=== PATIENT | female | born 1935 | race Caucasian/White ===

== ENCOUNTER 2021-04-12 08:18 | Inpatient (IN) | payer MEDICARE, OTHER ==
[2021-04-12] MEDS ORDERED: Sodium Chloride 0.9% 10 ML Syringe FLUSH PRN (08:38)
[2021-04-12] MEDS ORDERED: Sodium Chloride 0.9% 1,000 ML IV ONE ×2 (08:41→10:00)
--- NOTE | 2021-04-12 08:44 | EDM.PDOC ---
ED HPI GENERAL MEDICAL PROBLEM - General Stated Complaint: FALL Time Seen by Provider: 04/12/21 08:25 Source of Information: Reports: EMS, Family History Limitations: Reports: Altered Mental Status - History of Present Illness INITIAL COMMENTS - FREE TEXT/NARRATIVE: 85-year-old female who presents to the emergency department via BLS ambulance from [facility] in [place] secondary to decreased level of responsiveness. Apparently about a week ago the patient fell and did not appear to have any injuries. She has Alzheimer's dementia and is not usually very verbal but is able to get around with her walker and able to eat and drink. Apparently today she fell and the walker was on top of her and since then she has had decreased level of responsiveness. This information comes from the EMS personnel who brought the patient and also from talking to Barbara, the patient's daughter. They do tell me that the patient is a DNR/DNI and the family does not want any aggressive therapies. This is really all the history that I can obtain at this point. The patient is unresponsive to any stimuli and has labored respirations and initially on 100% nonrebreather was in the low 80s. This did come up to the mid 90s and her pulses in the 110 range. Blood pressure is in the 130 range. The patient does look quite ill. There are no other associated signs or symptoms no known. There are no other modifying factors known. Onset: Today Duration: Constant Location: Reports: Other (Not applicable) Quality: Reports: Other (Cannot obtain) Context: Reports: Other (As above) Associated Symptoms: Reports: No Other Symptoms (None known) Treatments ACCESS MANAGER: Reports: Other (see below) (Nothing.) Hip Pain Score (Numeric/FACES): 4 - Related Data Allergies Allergy/AdvReac Type Severity Reaction Status Date / Time Raisins Allergy Diarrhea Uncoded 04/12/21 15:45 Tomatoes Allergy Diarrhea Uncoded 04/12/21 15:44 Home Meds: Home Meds Calcium Carbonate/Vitamin D3 [Calcium 500-Vit D3 600 Caplet] 1 tab PO DAILY 04/12/21 [History] Cholecalciferol (Vitamin D3) [Vitamin D3] 5,000 unit PO DAILY 04/12/21 [History] Citalopram [Citalopram HBr] 10 mg PO DAILY 04/12/21 [History] Donepezil HCl 10 mg PO ASDIRECTED 04/12/21 [History] L.acidoph,Paracasei, B.lactis [Probiotic] 04/12/21 [History] Zinc 04/12/21 [History] Past Medical History Psychiatric History: Reports: Alzheimers Disease, Anxiety, Depression Social & Family History - Family History Family Medical History: Unobtainable - Tobacco Use Tobacco Use Status *Q: Unknown Ever Used Tobacco - Living Situation & Occupation Living situation: Reports: Assisted Living (Lives at [facility]) Occupation: Retired ED ROS GENERAL - Review of Systems Review Of Systems: Unable To Obtain Reason Not Obtained: Patient is comatose and cannot provide ED EXAM, GENERAL - Physical Exam Exam: See Below Exam Limited By: No Limitations General Appearance: Obtunded, Moderate Distress, Other (Appears near moribund) Eye Exam: Bilateral Eye: Other (Eyes close. No eye movement.) Ears: Normal External Exam Ear Exam: Bilateral Ear: Auricle Normal Nose: Normal Inspection, No Blood Throat/Mouth: Other (Dry mucous membranes) Neck: Normal Inspection Respiratory/Chest: Respiratory Distress Cardiovascular: Tachycardia, Other (Her extremities are cool peripherally) GI/Abdominal: Soft, Non-Tender Extremities: No Pedal Edema, Slow Capillary Refill Neurological: Unresponsive, Other (No response even to noxious stimuli.) Skin Exam: Cool, Pallor #1 Interpretation EKG Date: 04/12/21 Time: 09:27 Rhythm: NSR Rate (Beats/Min): 90 [place]: Normal P-Wave: Present QRS: Normal ST-T: Other (Possible subacute anteroseptal WA) QT: Normal Comparison: NA - No Prior EKG Course - Vital Signs Last Recorded V/S: Last Vital Signs Temp 36.0 C L 04/12/21 12:23 Pulse 88 04/12/21 12:23 Resp 21 H 04/12/21 12:23 BP 119/51 L 04/12/21 12:23 Pulse Ox 100 04/12/21 12:23 - Orders/Labs/Meds Orders: Active Orders 24 hr Category Date Time Status Insert Urinary Catheter [OM.PC] ONETIME Care 04/12/21 09:00 Ordered Chest 1V Frontal [CR] Stat Exams 04/12/21 08:38 Taken Head wo Cont [CT] Stat Exams 04/12/21 08:44 Taken CULTURE URINE [RM] Stat Lab 04/12/21 08:59 Received Sodium Chloride 0.9% [Saline Flush] Med 04/12/21 08:38 Active 10 ml FLUSH ASDIRECTED PRN Peripheral IV Insertion Adult [OM.PC] Routine Oth 04/12/21 08:38 Ordered EKG 12 Lead [EK] Routine Ther 04/12/21 08:38 Ordered Medication Orders Sodium Chloride (Normal Saline) 1,000 mls @ 150 mls/hr IV ASDIRECTED HIRO Last Admin: 04/12/21 12:50 Dose: 150 mls/hr Documented by: SAMY Sodium Chloride (Sodium Chloride 0.9% 10 Ml Syringe) 10 ml FLUSH ASDIRECTED PRN PRN Reason: Keep Vein Open Labs: Laboratory Tests 04/12/21 04/12/21 04/12/21 Range/Units 08:55 08:55 08:55 WBC 12.8 H (3.0-10.3) x10-3/uL RBC 4.68 (3.60-5.20) x10(6)uL Hgb 13.3 (11.4-15.5) g/dL Hct 41.2 (34.2-48.2) % MCV 87.9 (76.7-100.5) fL MCH 28.5 (23.9-33.9) pg MCHC 32.4 (31.9-34.8) g/dL RDW 14.4 (12.3-16.5) % Plt Count 300 (151-488) x10(3)uL MPV 6.9 L (7.1-12.4) fL Neut % (Auto) 59.8 (30.8-76.2) % Lymph % (Auto) 33.4 (18.4-52.1) % [place] % (Auto) 4.9 (4.4-15.7) % Eos % (Auto) 1.5 (0.6-8.1) % Baso % (Auto) 0.4 (0.2-1.5) % Neut # (Auto) 7.7 H (1.5-6.3) x10-3/uL Lymph # (Auto) 4.3 (1.0-4.4) x10-3/uL [place] # (Auto) 0.6 (0.3-1.0) x10-3/uL Eos # (Auto) 0.2 (0.0-0.8) x10-3/uL Baso # (Auto) 0.0 (0.0-0.1) x10-3/uL POC VBG pH (7.32-7.43) pH Units POC VBG pCO2 (41-51) mmHg POC VBG HCO3 (22-29) mmol/L VBG Base Excess (-2 - 3+) mmol/L O2 Delivery Device Oxygen Flow Rate LPM Sodium 145 (135-145) mmol/L Potassium 3.8 (3.5-5.3) mmol/L Chloride 107 (100-110) mmol/L Carbon Dioxide 25 (21-32) mmol/L BUN 26 H (7-18) mg/dL Creatinine 1.5 H (0.55-1.02) mg/dL Est Cr Clr Drug Dosing TNP Estimated GFR (MDRD) 33 L (>60) BUN/Creatinine Ratio 17.3 (9-20) Glucose 210 H (80-116) mg/dL Lactic Acid (0.4-2.0) mmol/L Calcium 9.0 (8.6-10.2) mg/dL Magnesium 2.6 H (1.8-2.5) mg/dL Total Bilirubin 0.5 (0.1-1.3) mg/dL AST 43 H (5-25) IU/L ALT 36 (12-36) U/L Alkaline Phosphatase 153 H (56-112) IU/L Troponin I 312.6 H* (4.0-60.3) pg/mL Total Protein 7.2 (6.0-8.0) g/dL Albumin 3.2 (3.2-4.6) g/dL Globulin 4.0 g/dL Albumin/Globulin Ratio 0.8 Urine Color (YELLOW) Urine Appearance (CLEAR) Urine pH (5.0-6.5) Ur Specific [place] (1.010-1.025) Urine Protein (NEGATIVE) mg/dL Urine Glucose (UA) (NORMAL) mg/dL Urine Ketones (NEGATIVE) mg/dL Urine Occult Blood (NEGATIVE) Urine Nitrite (NEGATIVE) Urine Bilirubin (NEGATIVE) Urine Urobilinogen (NEGATIVE) mg/dL Ur Leukocyte Esterase (NEGATIVE) U Hyaline Cast (Auto) (NS) Urine RBC (0-5) Urine WBC (0-5) Ur Squamous Epith Cells (NS,R,O) Urine Bacteria (NS) Urine Mucus (NS) 04/12/21 04/12/21 04/12/21 Range/Units 08:55 08:59 09:06 WBC (3.0-10.3) x10-3/uL RBC (3.60-5.20) x10(6)uL Hgb (11.4-15.5) g/dL Hct (34.2-48.2) % MCV (76.7-100.5) fL MCH (23.9-33.9) pg MCHC (31.9-34.8) g/dL RDW (12.3-16.5) % Plt Count (151-488) x10(3)uL MPV (7.1-12.4) fL Neut % (Auto) (30.8-76.2) % Lymph % (Auto) (18.4-52.1) % [place] % (Auto) (4.4-15.7) % Eos % (Auto) (0.6-8.1) % Baso % (Auto) (0.2-1.5) % Neut # (Auto) (1.5-6.3) x10-3/uL Lymph # (Auto) (1.0-4.4) x10-3/uL [place] # (Auto) (0.3-1.0) x10-3/uL Eos # (Auto) (0.0-0.8) x10-3/uL Baso # (Auto) (0.0-0.1) x10-3/uL POC VBG pH 7.33 (7.32-7.43) pH Units POC VBG pCO2 41 (41-51) mmHg POC VBG HCO3 22 (22-29) mmol/L VBG Base Excess -4 L (-2 - 3+) mmol/L O2 Delivery Device Non rebr mask Oxygen Flow Rate 15 LPM Sodium (135-145) mmol/L Potassium (3.5-5.3) mmol/L Chloride (100-110) mmol/L Carbon Dioxide (21-32) mmol/L BUN (7-18) mg/dL Creatinine (0.55-1.02) mg/dL Est Cr Clr Drug Dosing Estimated GFR (MDRD) (>60) BUN/Creatinine Ratio (9-20) Glucose (80-116) mg/dL Lactic Acid 3.8 H* (0.4-2.0) mmol/L Calcium (8.6-10.2) mg/dL Magnesium (1.8-2.5) mg/dL Total Bilirubin (0.1-1.3) mg/dL AST (5-25) IU/L ALT (12-36) U/L Alkaline Phosphatase (56-112) IU/L Troponin I (4.0-60.3) pg/mL Total Protein (6.0-8.0) g/dL Albumin (3.2-4.6) g/dL Globulin g/dL Albumin/Globulin Ratio Urine Color Yellow (YELLOW) Urine Appearance Slightly cloudy (CLEAR) Urine pH 5.0 (5.0-6.5) Ur Specific [place] 1.020 (1.010-1.025) Urine Protein 500 H (NEGATIVE) mg/dL Urine Glucose (UA) Normal (NORMAL) mg/dL Urine Ketones Negative (NEGATIVE) mg/dL Urine Occult Blood Moderate H (NEGATIVE) Urine Nitrite Negative (NEGATIVE) Urine Bilirubin Negative (NEGATIVE) Urine Urobilinogen Normal (NEGATIVE) mg/dL Ur Leukocyte Esterase Moderate H (NEGATIVE) U Hyaline Cast (Auto) Rare H (NS) Urine RBC 5-10 H (0-5) Urine WBC 10-20 H (0-5) Ur Squamous Epith Cells Occasional (NS,R,O) Urine Bacteria Moderate H (NS) Urine Mucus Rare H (NS) Meds: Medications Generic Name Dose Route Start Last Admin Trade Name Freq PRN Reason Stop Dose Admin Sodium Chloride 1,000 mls @ 150 mls/hr 04/12/21 12:45 04/12/21 12:50 Normal Saline IV 150 mls/hr ASDIRECTED HIRO Administration Sodium Chloride 10 ml 04/12/21 08:38 Sodium Chloride 0.9% 10 Ml Syringe FLUSH ASDIRECTED PRN Keep Vein Open Discontinued Medications Generic Name Dose Route Start Last Admin Trade Name Freq PRN Reason Stop Dose Admin Sodium Chloride 1,000 mls @ 999 mls/hr 04/12/21 08:41 04/12/21 08:45 Normal Saline IV 04/12/21 09:41 999 mls/hr .BOLUS ONE Administration Sodium Chloride 1,000 mls @ 999 mls/hr 04/12/21 10:00 Normal Saline IV 04/12/21 11:00 .BOLUS ONE - Radiology Interpretation Free Text/Narrative:: Portable chest x-ray shows no acute abnormality per my read. - Re-Assessments/Exams Free Text/Narrative Re-Assessment/Exam: 04/12/21 10:25: She remains unresponsive. She has blood pressure the ranges anywhere from 60-100 systolic. She is receiving another 1 L bolus of normal saline IV. She did have scant urine on catheter specimen per the nursing staff. Her O2 saturations are 100% on 100% nonrebreather. White blood flow count is 12.8. Hemoglobin is 13.3. Platelet count is normal. Sodium is 145. Potassium is 3.8. Bicarbonate is 25. BUN is 26 and creatinine is 1.5. Glucose 210. These are normal. Magnesium is 2.6. Lactic acid is 3.8. Troponin is 312.6 EKG shows ev idence of what I think is a subacute anteroseptal WA. The chest x-ray was negative. This all this with the patient's and her daughter. They had already told me that the patient is a DNR/DNI and now he has also conveyed that he would want the patient to be comfort cares only. They would want IV fluids and supple oxygen but no aggressive earpiece. In fact, I feel that it is possible this could represent a PE and the family would not want any further testing to check into this your any other issue. Therefore, the patient will be admitted for comfort cares as above. A rapid Covid test is pending. Departure - Departure Time of Disposition: 10:29 Disposition: Admitted As Inpatient 68 Condition: Poor Clinical Impression: Encephalopathy acute Myocardial infarction Qualifiers: Myocardial infarction type: other Qualified Code(s): I21.A9 - Other myocardial infarction type Respiratory failure with hypoxia Qualifiers: Chronicity: acute Qualified Code(s): J96.01 - Acute respiratory failure with hypoxia - Discharge Information Sepsis Event Note (ED) - Focused Exam Vital Signs: Vital Signs Temp Pulse Resp BP Pulse Ox 04/12/21 09:01 35.9 C L 97 22 H 87/48 L 97 04/12/21 08:27 137 H 65 L - My Orders Last 24 Hours: My Active Orders 04/12/21 08:38 Chest 1V Frontal [CR] Stat Sodium Chloride 0.9% [Saline Flush] 10 ml FLUSH ASDIRECTED PRN Peripheral IV Insertion Adult [OM.PC] Routine EKG 12 Lead [EK] Routine 04/12/21 08:44 Head wo Cont [CT] Stat 04/12/21 08:59 CULTURE URINE [RM] Stat 04/12/21 09:00 Insert Urinary Catheter [OM.PC] ONETIME - Assessment/Plan Last 24 Hours: My Active Orders 04/12/21 08:38 Chest 1V Frontal [CR] Stat Sodium Chloride 0.9% [Saline Flush] 10 ml FLUSH ASDIRECTED PRN Peripheral IV Insertion Adult [OM.PC] Routine EKG 12 Lead [EK] Routine 04/12/21 08:44 Head wo Cont [CT] Stat 04/12/21 08:59 CULTURE URINE [RM] Stat 04/12/21 09:00 Insert Urinary Catheter [OM.PC] ONETIME
[2021-04-12 09:10] LABS: BASE EXCESS VENOUS,POC -4 mmol/L (-2 - 3+); PCO2 VENOUS,POC 41 mmHg (41-51); PH VENOUS,POC 7.33 pH Units (7.32-7.43)
[2021-04-12] MEDS: Sodium Chloride 0.9% 1,000 ML IV SCH ×2 (12:50→18:22)
--- NOTE | 2021-04-12 15:46 | PCM.HP.2 ---
H&P History of Present Illness - General Date of Service: 04/12/21 Admit Problem/Dx: Admission Diagnosis/Problem Admission Diagnosis/Problem AL, Myocardial infarction Source of Information: Family, Old Records History Limitations: Reports: Altered Mental Status - History of Present Illness Initial Comments - Free Text/Narative: Irena was brought from [facility], after she fell and became unresponsive. The was in another room when he heard her fall. She was unresponsive to him and route to the hospital by EMS, and even at the ER was not responding to painful stimuli. Oxygenation was reportedly in the low 80s on room air. She did perk up after a while and was able to respond, and the family give history of a fall recently (about 10 days ago) of a similar nature. She's not able to give much history because of Alzheimer's Dementia.The family endorse that she has had decreased oral intake,has not been participating in activities at the home,sleeping all the time. Hip Pain Score (Numeric/FACES): 4 - Related Data Allergies/Adverse Reactions: Allergies Allergy/AdvReac Type Severity Reaction Status Date / Time Raisins Allergy Diarrhea Uncoded 04/12/21 15:45 Tomatoes Allergy Diarrhea Uncoded 04/12/21 15:44 Past Medical History Psychiatric History: Reports: Alzheimers Disease, Anxiety, Depression - Past Surgical History Female Surgical History: Reports: Hysterectomy Social & Family History - Family History Family Medical History: Unobtainable - Tobacco Use Tobacco Use Status *Q: Never Tobacco User - Caffeine Use Caffeine Use: Reports: None - Recreational Drug Use Recreational Drug Use: No - Living Situation & Occupation Living situation: Reports: Assisted Living (Lives at [facility]) Occupation: Retired H&P Review of Systems - Review of Systems: Review Of Systems: Comprehensive ROS is negative, except as noted in HPI. Exam - Exam Exam: See Below - Vital Signs Vital Signs: Last Vital Signs Temp 96.8 F L 04/12/21 12:23 Pulse 88 04/12/21 12:23 Resp 21 H 04/12/21 12:23 BP 119/51 L 04/12/21 12:23 Pulse Ox 100 04/12/21 12:23 Weight: 64.365 kg - Exam General: Alert, Oriented, 4 HEENT: PERRLA, Hearing Intact, Mucosa Moist & [place], Nares Patent, Normal Nasal Septum, Posterior Pharynx Clear, Conjunctiva Clear, EOMI, EACs Clear, TMs Clear Neck: Supple, Trachea Midline, 2 Lungs: Clear to Auscultation, Normal Respiratory Effort Cardiovascular: Regular Rate, Regular Rhythm GI/Abdominal Exam: Normal Bowel Sounds, Soft, Non-Tender, No Organomegaly, No Distention, No Abnormal Bruit, No Mass, Pelvis Stable (Female) Exam: Deferred Rectal (Female) Exam: Deferred Back Exam: Normal Inspection, Full Range of Motion, Paraspinal Tenderness Extremities: Normal Inspection, Normal Range of Motion, Non-Tender, No Pedal Edema, Normal Capillary Refill Skin: Warm, Dry, Intact Neurological: Cranial Nerves Intact, Reflexes Equal Bilateral Neuro Extensive - Mental Status: Alert, Disorientation to Person, Memory Loss- Remote Events Neuro Extensive - Motor, Sensory, Reflexes: CN II-XII Intact Psychiatric: Alert, Depressed - Patient Data Lab Results Last 24 hrs: Laboratory Results - last 24 hr 04/12/21 04/12/21 04/12/21 Range/Units 08:55 08:55 08:55 WBC 12.8 H (3.0-10.3) x10-3/uL RBC 4.68 (3.60-5.20) x10(6)uL Hgb 13.3 (11.4-15.5) g/dL Hct 41.2 (34.2-48.2) % MCV 87.9 (76.7-100.5) fL MCH 28.5 (23.9-33.9) pg MCHC 32.4 (31.9-34.8) g/dL RDW 14.4 (12.3-16.5) % Plt Count 300 (151-488) x10(3)uL MPV 6.9 L (7.1-12.4) fL Neut % (Auto) 59.8 (30.8-76.2) % Lymph % (Auto) 33.4 (18.4-52.1) % [place] % (Auto) 4.9 (4.4-15.7) % Eos % (Auto) 1.5 (0.6-8.1) % Baso % (Auto) 0.4 (0.2-1.5) % Neut # (Auto) 7.7 H (1.5-6.3) x10-3/uL Lymph # (Auto) 4.3 (1.0-4.4) x10-3/uL [place] # (Auto) 0.6 (0.3-1.0) x10-3/uL Eos # (Auto) 0.2 (0.0-0.8) x10-3/uL Baso # (Auto) 0.0 (0.0-0.1) x10-3/uL POC VBG pH (7.32-7.43) pH Units POC VBG pCO2 (41-51) mmHg POC VBG HCO3 (22-29) mmol/L VBG Base Excess (-2 - 3+) mmol/L O2 Delivery Device Oxygen Flow Rate LPM Sodium 145 (135-145) mmol/L Potassium 3.8 (3.5-5.3) mmol/L Chloride 107 (100-110) mmol/L Carbon Dioxide 25 (21-32) mmol/L BUN 26 H (7-18) mg/dL Creatinine 1.5 H (0.55-1.02) mg/dL Est Cr Clr Drug Dosing TNP Estimated GFR (MDRD) 33 L (>60) BUN/Creatinine Ratio 17.3 (9-20) Glucose 210 H (80-116) mg/dL Lactic Acid (0.4-2.0) mmol/L Calcium 9.0 (8.6-10.2) mg/dL Magnesium 2.6 H (1.8-2.5) mg/dL Total Bilirubin 0.5 (0.1-1.3) mg/dL AST 43 H (5-25) IU/L ALT 36 (12-36) U/L Alkaline Phosphatase 153 H (56-112) IU/L Troponin I 312.6 H* (4.0-60.3) pg/mL Total Protein 7.2 (6.0-8.0) g/dL Albumin 3.2 (3.2-4.6) g/dL Globulin 4.0 g/dL Albumin/Globulin Ratio 0.8 Urine Color (YELLOW) Urine Appearance (CLEAR) Urine pH (5.0-6.5) Ur Specific [place] (1.010-1.025) Urine Protein (NEGATIVE) mg/dL Urine Glucose (UA) (NORMAL) mg/dL Urine Ketones (NEGATIVE) mg/dL Urine Occult Blood (NEGATIVE) Urine Nitrite (NEGATIVE) Urine Bilirubin (NEGATIVE) Urine Urobilinogen (NEGATIVE) mg/dL Ur Leukocyte Esterase (NEGATIVE) U Hyaline Cast (Auto) (NS) Urine RBC (0-5) Urine WBC (0-5) Ur Squamous Epith Cells (NS,R,O) Urine Bacteria (NS) Urine Mucus (NS) SARS-CoV-2 RNA (VICTORINO) (NEGATIVE) 04/12/21 04/12/21 04/12/21 Range/Units 08:55 08:59 09:06 WBC (3.0-10.3) x10-3/uL RBC (3.60-5.20) x10(6)uL Hgb (11.4-15.5) g/dL Hct (34.2-48.2) % MCV (76.7-100.5) fL MCH (23.9-33.9) pg MCHC (31.9-34.8) g/dL RDW (12.3-16.5) % Plt Count (151-488) x10(3)uL MPV (7.1-12.4) fL Neut % (Auto) (30.8-76.2) % Lymph % (Auto) (18.4-52.1) % [place] % (Auto) (4.4-15.7) % Eos % (Auto) (0.6-8.1) % Baso % (Auto) (0.2-1.5) % Neut # (Auto) (1.5-6.3) x10-3/uL Lymph # (Auto) (1.0-4.4) x10-3/uL [place] # (Auto) (0.3-1.0) x10-3/uL Eos # (Auto) (0.0-0.8) x10-3/uL Baso # (Auto) (0.0-0.1) x10-3/uL POC VBG pH 7.33 (7.32-7.43) pH Units POC VBG pCO2 41 (41-51) mmHg POC VBG HCO3 22 (22-29) mmol/L VBG Base Excess -4 L (-2 - 3+) mmol/L O2 Delivery Device Non rebr mask Oxygen Flow Rate 15 LPM Sodium (135-145) mmol/L Potassium (3.5-5.3) mmol/L Chloride (100-110) mmol/L Carbon Dioxide (21-32) mmol/L BUN (7-18) mg/dL Creatinine (0.55-1.02) mg/dL Est Cr Clr Drug Dosing Estimated GFR (MDRD) (>60) BUN/Creatinine Ratio (9-20) Glucose (80-116) mg/dL Lactic Acid 3.8 H* (0.4-2.0) mmol/L Calcium (8.6-10.2) mg/dL Magnesium (1.8-2.5) mg/dL Total Bilirubin (0.1-1.3) mg/dL AST (5-25) IU/L ALT (12-36) U/L Alkaline Phosphatase (56-112) IU/L Troponin I (4.0-60.3) pg/mL Total Protein (6.0-8.0) g/dL Albumin (3.2-4.6) g/dL Globulin g/dL Albumin/Globulin Ratio Urine Color Yellow (YELLOW) Urine Appearance Slightly cloudy (CLEAR) Urine pH 5.0 (5.0-6.5) Ur Specific [place] 1.020 (1.010-1.025) Urine Protein 500 H (NEGATIVE) mg/dL Urine Glucose (UA) Normal (NORMAL) mg/dL Urine Ketones Negative (NEGATIVE) mg/dL Urine Occult Blood Moderate H (NEGATIVE) Urine Nitrite Negative (NEGATIVE) Urine Bilirubin Negative (NEGATIVE) Urine Urobilinogen Normal (NEGATIVE) mg/dL Ur Leukocyte Esterase Moderate H (NEGATIVE) U Hyaline Cast (Auto) Rare H (NS) Urine RBC 5-10 H (0-5) Urine WBC 10-20 H (0-5) Ur Squamous Epith Cells Occasional (NS,R,O) Urine Bacteria Moderate H (NS) Urine Mucus Rare H (NS) SARS-CoV-2 RNA (VICTORINO) (NEGATIVE) 04/12/21 Range/Units 10:30 WBC (3.0-10.3) x10-3/uL RBC (3.60-5.20) x10(6)uL Hgb (11.4-15.5) g/dL Hct (34.2-48.2) % MCV (76.7-100.5) fL MCH (23.9-33.9) pg MCHC (31.9-34.8) g/dL RDW (12.3-16.5) % Plt Count (151-488) x10(3)uL MPV (7.1-12.4) fL Neut % (Auto) (30.8-76.2) % Lymph % (Auto) (18.4-52.1) % [place] % (Auto) (4.4-15.7) % Eos % (Auto) (0.6-8.1) % Baso % (Auto) (0.2-1.5) % Neut # (Auto) (1.5-6.3) x10-3/uL Lymph # (Auto) (1.0-4.4) x10-3/uL [place] # (Auto) (0.3-1.0) x10-3/uL Eos # (Auto) (0.0-0.8) x10-3/uL Baso # (Auto) (0.0-0.1) x10-3/uL POC VBG pH (7.32-7.43) pH Units POC VBG pCO2 (41-51) mmHg POC VBG HCO3 (22-29) mmol/L VBG Base Excess (-2 - 3+) mmol/L O2 Delivery Device Oxygen Flow Rate LPM Sodium (135-145) mmol/L Potassium (3.5-5.3) mmol/L Chloride (100-110) mmol/L Carbon Dioxide (21-32) mmol/L BUN (7-18) mg/dL Creatinine (0.55-1.02) mg/dL Est Cr Clr Drug Dosing Estimated GFR (MDRD) (>60) BUN/Creatinine Ratio (9-20) Glucose (80-116) mg/dL Lactic Acid (0.4-2.0) mmol/L Calcium (8.6-10.2) mg/dL Magnesium (1.8-2.5) mg/dL Total Bilirubin (0.1-1.3) mg/dL AST (5-25) IU/L ALT (12-36) U/L Alkaline Phosphatase (56-112) IU/L Troponin I (4.0-60.3) pg/mL Total Protein (6.0-8.0) g/dL Albumin (3.2-4.6) g/dL Globulin g/dL Albumin/Globulin Ratio Urine Color (YELLOW) Urine Appearance (CLEAR) Urine pH (5.0-6.5) Ur Specific [place] (1.010-1.025) Urine Protein (NEGATIVE) mg/dL Urine Glucose (UA) (NORMAL) mg/dL Urine Ketones (NEGATIVE) mg/dL Urine Occult Blood (NEGATIVE) Urine Nitrite (NEGATIVE) Urine Bilirubin (NEGATIVE) Urine Urobilinogen (NEGATIVE) mg/dL Ur Leukocyte Esterase (NEGATIVE) U Hyaline Cast (Auto) (NS) Urine RBC (0-5) Urine WBC (0-5) Ur Squamous Epith Cells (NS,R,O) Urine Bacteria (NS) Urine Mucus (NS) SARS-CoV-2 RNA (VICTORINO) Negative (NEGATIVE) Result Diagrams: 04/12/21 08:55 04/12/21 08:55 Sepsis Event Note - Focused Exam Vital Signs: Vital Signs Temp Pulse Resp BP Pulse Ox 04/12/21 12:23 96.8 F L 88 21 H 119/51 L 100 04/12/21 09:01 96.7 F L 97 22 H 87/48 L 97 04/12/21 08:27 137 H 65 L - Problem List (1) Myocardial infarction SNOMED Code(s): 03560522 ICD Code: I21.9 - ACUTE MYOCARDIAL INFARCTION, UNSPECIFIED Status: Acute Current Visit: Yes Qualifiers: Myocardial infarction type: other Qualified Code(s): I21.A9 - Other myocardial infarction type; I21.A - Other type of myocardial infarction (2) YEYO (acute kidney injury) SNOMED Code(s): 49573551, 96055926 ICD Code: N17.9 - ACUTE KIDNEY FAILURE, UNSPECIFIED Status: Acute Current Visit: Yes (3) Repeated falls SNOMED Code(s): 122721557 ICD Code: R29.6 - REPEATED FALLS Status: Acute Current Visit: Yes (4) Alzheimer's dementia SNOMED Code(s): 08268340 ICD Code: G30.9 - ALZHEIMER'S DISEASE, UNSPECIFIED; F02.80 - DEMENTIA IN OTH DISEASES CLASSD ELSWHR W/O BEHAVRL DISTURB Status: Acute Current Visit: Yes Qualifiers: Alzheimer's disease onset: late-onset (5) Respiratory failure with hypoxia SNOMED Code(s): 45057384185785264 ICD Code: J96.91 - RESPIRATORY FAILURE, UNSPECIFIED WITH HYPOXIA Status: Acute Current Visit: Yes Qualifiers: Chronicity: acute Qualified Code(s): J96.01 - Acute respiratory failure with hypoxia Problem List Initiated/Reviewed/Updated: Yes Orders Last 24hrs: Active Orders 24 hr Category Date Time Status Admission Status [Patient Status] [ADT] Routine ADT 04/12/21 10:29 Active EKG Documentation Completion [RC] ASDIRECTED Care 04/12/21 08:40 Active Insert Urinary Catheter [OM.PC] ONETIME Care 04/12/21 09:00 Ordered Regular Diet [DIET] Diet 04/12/21 Dinner Ordered Chest 1V Frontal [CR] Stat Exams 04/12/21 08:38 Taken Head wo Cont [CT] Stat Exams 04/12/21 08:44 Taken CULTURE URINE [RM] Stat Lab 04/12/21 08:59 Received Sodium Chloride 0.9% [Normal Saline] 1,000 ml Med 04/12/21 12:45 Active IV ASDIRECTED Sodium Chloride 0.9% [Saline Flush] Med 04/12/21 08:38 Active 10 ml FLUSH ASDIRECTED PRN Peripheral IV Insertion Adult [OM.PC] Routine Oth 04/12/21 08:38 Ordered Resuscitation Status Stat Resus Stat 04/12/21 10:31 Ordered EKG 12 Lead [EK] Routine Ther 04/12/21 08:38 Ordered Medication Orders Sodium Chloride (Normal Saline) 1,000 mls @ 150 mls/hr IV ASDIRECTED HIRO Last Admin: 04/12/21 12:50 Dose: 150 mls/hr Documented by: SAMY Sodium Chloride (Sodium Chloride 0.9% 10 Ml Syringe) 10 ml FLUSH ASDIRECTED PRN PRN Reason: Keep Vein Open Assessment/Plan Comment:: Irena is now alert, although she does show memory disturbance consistent with her h/o AD. She's an unreliable historian. There is no chest pain or shortness of breath reported. The family does not want any heroic intervention, preferring comfort measures.I glenn give IV fluids, consult physical therapy, and OT. Possible discharge in 1-2 days. I did review the possibility of depression, and this would be discussed on an ambulatory basis by her PCP.
[2021-04-13] MEDS: Sodium Chloride 0.9% 1,000 ML IV SCH ×3 (01:06→21:34)
--- NOTE | 2021-04-13 09:18 | PCM.PN ---
- General Info Date of Service: 04/13/21 Subjective Update: Irena has no new symptoms. She denies chest pain or shortness of breath, however she is an unreliable historian due to dementia. - Review of Systems Cardiovascular: Reports: No Symptoms Gastrointestinal: Reports: No Symptoms Genitourinary: Reports: No Symptoms - Patient Data Vitals - Most Recent: Last Vital Signs Temp 96.5 F L 04/13/21 04:00 Pulse 70 04/13/21 04:00 Resp 18 04/13/21 04:00 BP 102/60 04/13/21 04:00 Pulse Ox 95 04/13/21 04:00 Weight - Most Recent: 64.365 kg I&O - Last 24 Hours: Intake & Output 04/12/21 04/13/21 04/13/21 22:59 06:59 14:59 Intake Total 1731 1098 Balance 1731 1098 Lab Results Last 24 Hours: Laboratory Results - last 24 hr 04/12/21 04/12/21 04/12/21 Range/Units 08:55 08:55 08:55 WBC (3.0-10.3) x10-3/uL RBC (3.60-5.20) x10(6)uL Hgb (11.4-15.5) g/dL Hct (34.2-48.2) % MCV (76.7-100.5) fL MCH (23.9-33.9) pg MCHC (31.9-34.8) g/dL RDW (12.3-16.5) % Plt Count (151-488) x10(3)uL MPV (7.1-12.4) fL Neut % (Auto) (30.8-76.2) % Lymph % (Auto) (18.4-52.1) % Carver % (Auto) (4.4-15.7) % Eos % (Auto) (0.6-8.1) % Baso % (Auto) (0.2-1.5) % Neut # (Auto) (1.5-6.3) x10-3/uL Lymph # (Auto) (1.0-4.4) x10-3/uL Carver # (Auto) (0.3-1.0) x10-3/uL Eos # (Auto) (0.0-0.8) x10-3/uL Baso # (Auto) (0.0-0.1) x10-3/uL Sodium 145 (135-145) mmol/L Potassium 3.8 (3.5-5.3) mmol/L Chloride 107 (100-110) mmol/L Carbon Dioxide 25 (21-32) mmol/L BUN 26 H (7-18) mg/dL Creatinine 1.5 H (0.55-1.02) mg/dL Est Cr Clr Drug Dosing TNP Estimated GFR (MDRD) 33 L (>60) BUN/Creatinine Ratio 17.3 (9-20) Glucose 210 H (80-116) mg/dL Lactic Acid 3.8 H* (0.4-2.0) mmol/L Calcium 9.0 (8.6-10.2) mg/dL Magnesium 2.6 H (1.8-2.5) mg/dL Total Bilirubin 0.5 (0.1-1.3) mg/dL AST 43 H (5-25) IU/L ALT 36 (12-36) U/L Alkaline Phosphatase 153 H (56-112) IU/L Troponin I 312.6 H* (4.0-60.3) pg/mL Total Protein 7.2 (6.0-8.0) g/dL Albumin 3.2 (3.2-4.6) g/dL Globulin 4.0 g/dL Albumin/Globulin Ratio 0.8 Urine Color (YELLOW) Urine Appearance (CLEAR) Urine pH (5.0-6.5) Ur Specific [place] (1.010-1.025) Urine Protein (NEGATIVE) mg/dL Urine Glucose (UA) (NORMAL) mg/dL Urine Ketones (NEGATIVE) mg/dL Urine Occult Blood (NEGATIVE) Urine Nitrite (NEGATIVE) Urine Bilirubin (NEGATIVE) Urine Urobilinogen (NEGATIVE) mg/dL Ur Leukocyte Esterase (NEGATIVE) U Hyaline Cast (Auto) (NS) Urine RBC (0-5) Urine WBC (0-5) Ur Squamous Epith Cells (NS,R,O) Urine Bacteria (NS) Urine Mucus (NS) SARS-CoV-2 RNA (VICTORINO) (NEGATIVE) 04/12/21 04/12/21 04/13/21 Range/Units 08:59 10:30 07:10 WBC 8.8 (3.0-10.3) x10-3/uL RBC 4.53 (3.60-5.20) x10(6)uL Hgb 12.8 (11.4-15.5) g/dL Hct 40.2 (34.2-48.2) % MCV 88.6 (76.7-100.5) fL MCH 28.3 (23.9-33.9) pg MCHC 31.9 (31.9-34.8) g/dL RDW 14.3 (12.3-16.5) % Plt Count 201 (151-488) x10(3)uL MPV 7.3 (7.1-12.4) fL Neut % (Auto) 80.4 H (30.8-76.2) % Lymph % (Auto) 11.2 L (18.4-52.1) % Carver % (Auto) 8.1 (4.4-15.7) % Eos % (Auto) 0.0 L (0.6-8.1) % Baso % (Auto) 0.3 (0.2-1.5) % Neut # (Auto) 7.0 H (1.5-6.3) x10-3/uL Lymph # (Auto) 1.0 (1.0-4.4) x10-3/uL Carver # (Auto) 0.7 (0.3-1.0) x10-3/uL Eos # (Auto) 0.0 (0.0-0.8) x10-3/uL Baso # (Auto) 0.0 (0.0-0.1) x10-3/uL Sodium (135-145) mmol/L Potassium (3.5-5.3) mmol/L Chloride (100-110) mmol/L Carbon Dioxide (21-32) mmol/L BUN (7-18) mg/dL Creatinine (0.55-1.02) mg/dL Est Cr Clr Drug Dosing Estimated GFR (MDRD) (>60) BUN/Creatinine Ratio (9-20) Glucose (80-116) mg/dL Lactic Acid (0.4-2.0) mmol/L Calcium (8.6-10.2) mg/dL Magnesium (1.8-2.5) mg/dL Total Bilirubin (0.1-1.3) mg/dL AST (5-25) IU/L ALT (12-36) U/L Alkaline Phosphatase (56-112) IU/L Troponin I (4.0-60.3) pg/mL Total Protein (6.0-8.0) g/dL Albumin (3.2-4.6) g/dL Globulin g/dL Albumin/Globulin Ratio Urine Color Yellow (YELLOW) Urine Appearance Slightly cloudy (CLEAR) Urine pH 5.0 (5.0-6.5) Ur Specific [place] 1.020 (1.010-1.025) Urine Protein 500 H (NEGATIVE) mg/dL Urine Glucose (UA) Normal (NORMAL) mg/dL Urine Ketones Negative (NEGATIVE) mg/dL Urine Occult Blood Moderate H (NEGATIVE) Urine Nitrite Negative (NEGATIVE) Urine Bilirubin Negative (NEGATIVE) Urine Urobilinogen Normal (NEGATIVE) mg/dL Ur Leukocyte Esterase Moderate H (NEGATIVE) U Hyaline Cast (Auto) Rare H (NS) Urine RBC 5-10 H (0-5) Urine WBC 10-20 H (0-5) Ur Squamous Epith Cells Occasional (NS,R,O) Urine Bacteria Moderate H (NS) Urine Mucus Rare H (NS) SARS-CoV-2 RNA (VICTORINO) Negative (NEGATIVE) 04/13/21 04/13/21 Range/Units 07:10 07:10 WBC (3.0-10.3) x10-3/uL RBC (3.60-5.20) x10(6)uL Hgb (11.4-15.5) g/dL Hct (34.2-48.2) % MCV (76.7-100.5) fL MCH (23.9-33.9) pg MCHC (31.9-34.8) g/dL RDW (12.3-16.5) % Plt Count (151-488) x10(3)uL MPV (7.1-12.4) fL Neut % (Auto) (30.8-76.2) % Lymph % (Auto) (18.4-52.1) % Carver % (Auto) (4.4-15.7) % Eos % (Auto) (0.6-8.1) % Baso % (Auto) (0.2-1.5) % Neut # (Auto) (1.5-6.3) x10-3/uL Lymph # (Auto) (1.0-4.4) x10-3/uL Carver # (Auto) (0.3-1.0) x10-3/uL Eos # (Auto) (0.0-0.8) x10-3/uL Baso # (Auto) (0.0-0.1) x10-3/uL Sodium 148 H (135-145) mmol/L Potassium 5.2 D (3.5-5.3) mmol/L Chloride 114 H D (100-110) mmol/L Carbon Dioxide 17 L (21-32) mmol/L BUN 37 H D (7-18) mg/dL Creatinine 2.0 H* (0.55-1.02) mg/dL Est Cr Clr Drug Dosing 16.86 Estimated GFR (MDRD) 24 L (>60) BUN/Creatinine Ratio 18.5 (9-20) Glucose 172 H (80-116) mg/dL Lactic Acid (0.4-2.0) mmol/L Calcium 8.5 L (8.6-10.2) mg/dL Magnesium (1.8-2.5) mg/dL Total Bilirubin (0.1-1.3) mg/dL AST (5-25) IU/L ALT (12-36) U/L Alkaline Phosphatase (56-112) IU/L Troponin I 1581.4 H* (4.0-60.3) pg/mL Total Protein (6.0-8.0) g/dL Albumin (3.2-4.6) g/dL Globulin g/dL Albumin/Globulin Ratio Urine Color (YELLOW) Urine Appearance (CLEAR) Urine pH (5.0-6.5) Ur Specific [place] (1.010-1.025) Urine Protein (NEGATIVE) mg/dL Urine Glucose (UA) (NORMAL) mg/dL Urine Ketones (NEGATIVE) mg/dL Urine Occult Blood (NEGATIVE) Urine Nitrite (NEGATIVE) Urine Bilirubin (NEGATIVE) Urine Urobilinogen (NEGATIVE) mg/dL Ur Leukocyte Esterase (NEGATIVE) U Hyaline Cast (Auto) (NS) Urine RBC (0-5) Urine WBC (0-5) Ur Squamous Epith Cells (NS,R,O) Urine Bacteria (NS) Urine Mucus (NS) SARS-CoV-2 RNA (VICTORINO) (NEGATIVE) Rajendra Results Last 24 Hours: Microbiology 04/12/21 08:59 Urine Culture - Preliminary Urine, Catheterized Gram Negative Rods Med Orders - Current: Current Medications Citalopram Hydrobromide (Citalopram 10 Mg Tab) 10 mg PO DAILY HIRO Donepezil HCl (Donepezil 10 Mg Tab) 10 mg PO ASDIRECTED HIRO Sodium Chloride (Normal Saline) 1,000 mls @ 150 mls/hr IV ASDIRECTED HIRO Last Admin: 04/13/21 01:06 Dose: 150 mls/hr Documented by: Non-Formulary Medication (Calcium Carbonate/Vitamin D3 [Calcium 500-Vit D3 600 Caplet]) 1 tab PO DAILY HIRO Non-Formulary Medication (Cholecalciferol (Vitamin D3) [Vitamin D3]) 5,000 unit PO DAILY HIRO Sodium Chloride (Sodium Chloride 0.9% 10 Ml Syringe) 10 ml FLUSH ASDIRECTED PRN PRN Reason: Keep Vein Open Discontinued Medications Sodium Chloride (Normal Saline) 1,000 mls @ 999 mls/hr IV .BOLUS ONE Stop: 04/12/21 09:41 Last Admin: 04/12/21 08:45 Dose: 999 mls/hr Documented by: Sodium Chloride (Normal Saline) 1,000 mls @ 999 mls/hr IV .BOLUS ONE Stop: 04/12/21 11:00 Last Admin: 04/12/21 10:00 Dose: 999 mls/hr Documented by: - Exam Quality Assessment: No: Supplemental Oxygen General: Alert, No Acute Distress HEENT: Pupils Equal Lungs: Clear to Auscultation Cardiovascular: Regular Rate GI/Abdominal Exam: Normal Bowel Sounds - Patient Data Lab Results Last 24 hrs: Laboratory Results - last 24 hr 04/12/21 04/12/21 04/12/21 Range/Units 08:55 08:55 08:55 WBC (3.0-10.3) x10-3/uL RBC (3.60-5.20) x10(6)uL Hgb (11.4-15.5) g/dL Hct (34.2-48.2) % MCV (76.7-100.5) fL MCH (23.9-33.9) pg MCHC (31.9-34.8) g/dL RDW (12.3-16.5) % Plt Count (151-488) x10(3)uL MPV (7.1-12.4) fL Neut % (Auto) (30.8-76.2) % Lymph % (Auto) (18.4-52.1) % Carver % (Auto) (4.4-15.7) % Eos % (Auto) (0.6-8.1) % Baso % (Auto) (0.2-1.5) % Neut # (Auto) (1.5-6.3) x10-3/uL Lymph # (Auto) (1.0-4.4) x10-3/uL Carver # (Auto) (0.3-1.0) x10-3/uL Eos # (Auto) (0.0-0.8) x10-3/uL Baso # (Auto) (0.0-0.1) x10-3/uL Sodium 145 (135-145) mmol/L Potassium 3.8 (3.5-5.3) mmol/L Chloride 107 (100-110) mmol/L Carbon Dioxide 25 (21-32) mmol/L BUN 26 H (7-18) mg/dL Creatinine 1.5 H (0.55-1.02) mg/dL Est Cr Clr Drug Dosing TNP Estimated GFR (MDRD) 33 L (>60) BUN/Creatinine Ratio 17.3 (9-20) Glucose 210 H (80-116) mg/dL Lactic Acid 3.8 H* (0.4-2.0) mmol/L Calcium 9.0 (8.6-10.2) mg/dL Magnesium 2.6 H (1.8-2.5) mg/dL Total Bilirubin 0.5 (0.1-1.3) mg/dL AST 43 H (5-25) IU/L ALT 36 (12-36) U/L Alkaline Phosphatase 153 H (56-112) IU/L Troponin I 312.6 H* (4.0-60.3) pg/mL Total Protein 7.2 (6.0-8.0) g/dL Albumin 3.2 (3.2-4.6) g/dL Globulin 4.0 g/dL Albumin/Globulin Ratio 0.8 Urine Color (YELLOW) Urine Appearance (CLEAR) Urine pH (5.0-6.5) Ur Specific [place] (1.010-1.025) Urine Protein (NEGATIVE) mg/dL Urine Glucose (UA) (NORMAL) mg/dL Urine Ketones (NEGATIVE) mg/dL Urine Occult Blood (NEGATIVE) Urine Nitrite (NEGATIVE) Urine Bilirubin (NEGATIVE) Urine Urobilinogen (NEGATIVE) mg/dL Ur Leukocyte Esterase (NEGATIVE) U Hyaline Cast (Auto) (NS) Urine RBC (0-5) Urine WBC (0-5) Ur Squamous Epith Cells (NS,R,O) Urine Bacteria (NS) Urine Mucus (NS) SARS-CoV-2 RNA (VICTORINO) (NEGATIVE) 04/12/21 04/12/21 04/13/21 Range/Units 08:59 10:30 07:10 WBC 8.8 (3.0-10.3) x10-3/uL RBC 4.53 (3.60-5.20) x10(6)uL Hgb 12.8 (11.4-15.5) g/dL Hct 40.2 (34.2-48.2) % MCV 88.6 (76.7-100.5) fL MCH 28.3 (23.9-33.9) pg MCHC 31.9 (31.9-34.8) g/dL RDW 14.3 (12.3-16.5) % Plt Count 201 (151-488) x10(3)uL MPV 7.3 (7.1-12.4) fL Neut % (Auto) 80.4 H (30.8-76.2) % Lymph % (Auto) 11.2 L (18.4-52.1) % Carver % (Auto) 8.1 (4.4-15.7) % Eos % (Auto) 0.0 L (0.6-8.1) % Baso % (Auto) 0.3 (0.2-1.5) % Neut # (Auto) 7.0 H (1.5-6.3) x10-3/uL Lymph # (Auto) 1.0 (1.0-4.4) x10-3/uL Carver # (Auto) 0.7 (0.3-1.0) x10-3/uL Eos # (Auto) 0.0 (0.0-0.8) x10-3/uL Baso # (Auto) 0.0 (0.0-0.1) x10-3/uL Sodium (135-145) mmol/L Potassium (3.5-5.3) mmol/L Chloride (100-110) mmol/L Carbon Dioxide (21-32) mmol/L BUN (7-18) mg/dL Creatinine (0.55-1.02) mg/dL Est Cr Clr Drug Dosing Estimated GFR (MDRD) (>60) BUN/Creatinine Ratio (9-20) Glucose (80-116) mg/dL Lactic Acid (0.4-2.0) mmol/L Calcium (8.6-10.2) mg/dL Magnesium (1.8-2.5) mg/dL Total Bilirubin (0.1-1.3) mg/dL AST (5-25) IU/L ALT (12-36) U/L Alkaline Phosphatase (56-112) IU/L Troponin I (4.0-60.3) pg/mL Total Protein (6.0-8.0) g/dL Albumin (3.2-4.6) g/dL Globulin g/dL Albumin/Globulin Ratio Urine Color Yellow (YELLOW) Urine Appearance Slightly cloudy (CLEAR) Urine pH 5.0 (5.0-6.5) Ur Specific [place] 1.020 (1.010-1.025) Urine Protein 500 H (NEGATIVE) mg/dL Urine Glucose (UA) Normal (NORMAL) mg/dL Urine Ketones Negative (NEGATIVE) mg/dL Urine Occult Blood Moderate H (NEGATIVE) Urine Nitrite Negative (NEGATIVE) Urine Bilirubin Negative (NEGATIVE) Urine Urobilinogen Normal (NEGATIVE) mg/dL Ur Leukocyte Esterase Moderate H (NEGATIVE) U Hyaline Cast (Auto) Rare H (NS) Urine RBC 5-10 H (0-5) Urine WBC 10-20 H (0-5) Ur Squamous Epith Cells Occasional (NS,R,O) Urine Bacteria Moderate H (NS) Urine Mucus Rare H (NS) SARS-CoV-2 RNA (VICTORINO) Negative (NEGATIVE) 04/13/21 04/13/21 Range/Units 07:10 07:10 WBC (3.0-10.3) x10-3/uL RBC (3.60-5.20) x10(6)uL Hgb (11.4-15.5) g/dL Hct (34.2-48.2) % MCV (76.7-100.5) fL MCH (23.9-33.9) pg MCHC (31.9-34.8) g/dL RDW (12.3-16.5) % Plt Count (151-488) x10(3)uL MPV (7.1-12.4) fL Neut % (Auto) (30.8-76.2) % Lymph % (Auto) (18.4-52.1) % Carver % (Auto) (4.4-15.7) % Eos % (Auto) (0.6-8.1) % Baso % (Auto) (0.2-1.5) % Neut # (Auto) (1.5-6.3) x10-3/uL Lymph # (Auto) (1.0-4.4) x10-3/uL Carver # (Auto) (0.3-1.0) x10-3/uL Eos # (Auto) (0.0-0.8) x10-3/uL Baso # (Auto) (0.0-0.1) x10-3/uL Sodium 148 H (135-145) mmol/L Potassium 5.2 D (3.5-5.3) mmol/L Chloride 114 H D (100-110) mmol/L Carbon Dioxide 17 L (21-32) mmol/L BUN 37 H D (7-18) mg/dL Creatinine 2.0 H* (0.55-1.02) mg/dL Est Cr Clr Drug Dosing 16.86 Estimated GFR (MDRD) 24 L (>60) BUN/Creatinine Ratio 18.5 (9-20) Glucose 172 H (80-116) mg/dL Lactic Acid (0.4-2.0) mmol/L Calcium 8.5 L (8.6-10.2) mg/dL Magnesium (1.8-2.5) mg/dL Total Bilirubin (0.1-1.3) mg/dL AST (5-25) IU/L ALT (12-36) U/L Alkaline Phosphatase (56-112) IU/L Troponin I 1581.4 H* (4.0-60.3) pg/mL Total Protein (6.0-8.0) g/dL Albumin (3.2-4.6) g/dL Globulin g/dL Albumin/Globulin Ratio Urine Color (YELLOW) Urine Appearance (CLEAR) Urine pH (5.0-6.5) Ur Specific [place] (1.010-1.025) Urine Protein (NEGATIVE) mg/dL Urine Glucose (UA) (NORMAL) mg/dL Urine Ketones (NEGATIVE) mg/dL Urine Occult Blood (NEGATIVE) Urine Nitrite (NEGATIVE) Urine Bilirubin (NEGATIVE) Urine Urobilinogen (NEGATIVE) mg/dL Ur Leukocyte Esterase (NEGATIVE) U Hyaline Cast (Auto) (NS) Urine RBC (0-5) Urine WBC (0-5) Ur Squamous Epith Cells (NS,R,O) Urine Bacteria (NS) Urine Mucus (NS) SARS-CoV-2 RNA (VICTORINO) (NEGATIVE) Result Diagrams: 04/13/21 07:10 04/13/21 07:10 Rajendra Results Last 24 hrs: Microbiology 04/12/21 08:59 Urine Culture - Preliminary Urine, Catheterized Gram Negative Rods Sepsis Event Note - Evaluation Sepsis Screening Result: Possible Sepsis Risk - Focused Exam Vital Signs: Vital Signs Temp Pulse Resp BP Pulse Ox 04/13/21 04:00 96.5 F L 70 18 102/60 95 04/13/21 00:00 96.5 F L 76 18 99/51 L 95 04/12/21 21:48 96.8 F L 87 20 119/51 L 96 - Problem List & Annotations (1) Myocardial infarction SNOMED Code(s): 31488657 Code(s): I21.9 - ACUTE MYOCARDIAL INFARCTION, UNSPECIFIED Status: Acute Current Visit: Yes Qualifiers: Myocardial infarction type: other Qualified Code(s): I21.A9 - Other myoc ardial infarction type; I21.A - Other type of myocardial infarction (2) YEYO (acute kidney injury) SNOMED Code(s): 60395956, 71050447 Code(s): N17.9 - ACUTE KIDNEY FAILURE, UNSPECIFIED Status: Acute Current Visit: Yes (3) Repeated falls SNOMED Code(s): 909672170 Code(s): R29.6 - REPEATED FALLS Status: Acute Current Visit: Yes (4) Alzheimer's dementia SNOMED Code(s): 07462502 Code(s): G30.9 - ALZHEIMER'S DISEASE, UNSPECIFIED; F02.80 - DEMENTIA IN OTH DISEASES CLASSD ELSWHR W/O BEHAVRL DISTURB Status: Acute Current Visit: Yes Qualifiers: Alzheimer's disease onset: late-onset (5) Respiratory failure with hypoxia SNOMED Code(s): 67238037910855265 Code(s): J96.91 - RESPIRATORY FAILURE, UNSPECIFIED WITH HYPOXIA Status: Acute Current Visit: Yes Qualifiers: Chronicity: acute Qualified Code(s): J96.01 - Acute respiratory failure with hypoxia (6) MDD (major depressive disorder) SNOMED Code(s): 992449973 Code(s): F32.9 - MAJOR DEPRESSIVE DISORDER, SINGLE EPISODE, UNSPECIFIED Status: Acute Current Visit: Yes Qualifiers: Major depression recurrence: recurrent - Problem List Review Problem List Initiated/Reviewed/Updated: Yes - My Orders Last 24 Hours: My Active Orders 04/12/21 15:47 OT Evaluation and Treatment [CONS] Routine PT Evaluation and Treatment [CONS] Routine 04/12/21 Dinner Regular Diet [DIET] 04/13/21 09:15 Donepezil [Aricept] 10 mg PO ASDIRECTED L.acidoph,Paracasei, B.lactis [Probiotic] DOSE UNIT RTE FREQ Zinc [Zinc] DOSE UNIT RTE FREQ 04/14/21 05:11 BASIC METABOLIC PANEL,BMP [CHEM] AM CBC WITH AUTO DIFF [HEME] AM TROPONIN I [CHEM] AM 04/14/21 09:00 Calcium Carbonate/Vitamin D3 [Calcium 500-Vit D3 600 Caplet] 1 tab PO DAILY Cholecalciferol (Vitamin D3) [Vitamin D3] 5,000 unit PO DAILY Citalopram [Celexa] 10 mg PO DAILY - Plan Plan:: She is severely dehydrated, having very little urine output overnight, and a creatinine is 2.0 today,with CO2 of 17. I will continue with IV fluid supplementation. Her troponin is higher but she has no symptoms, so an NSTEMI is suspected. The family did not want any further intervention,as per yesterday's discussion. I did attempt to call the daughter Barbara, and left a voicemail, to see if she would like us to treat her MN medially,eg by Plavix, aspirin heparin, and a beta mack.
[2021-04-13] MEDS ORDERED: Enoxaparin 60 MG/0.6 ML Syringe SUBCUT SCH (10:00)
[2021-04-13] MEDS: Donepezil 10 MG Tab PO SCH (11:21)
[2021-04-13] MEDS: Citalopram 10 MG Tab PO SCH (11:22)
[2021-04-13] MEDS: Metoprolol Succinate 25 MG Tab.ER PO SCH (11:22)
[2021-04-13] MEDS: Aspirin 325 MG Tab.EC PO SCH (11:23)
[2021-04-13] MEDS ORDERED: Morphine 2 MG/ML SYRINGE IVPUSH PRN (21:00)
[2021-04-14] MEDS: Sodium Chloride 0.9% 1,000 ML IV SCH (04:33)
[2021-04-14] MEDS ORDERED: Cholecalciferol (Vitamin D3) 25 MCG Tab PO SCH (09:00)
[2021-04-14] MEDS: Citalopram 10 MG Tab PO SCH (09:00)
[2021-04-14] MEDS ORDERED: Calcium Carbonate 500 MG Tablet PO SCH (09:00)
--- NOTE | 2021-04-14 09:02 | PCM.PN ---
- General Info Date of Service: 04/14/21 Subjective Update: Irena at 2 episodes of being unresponsive yesterday, and then spontaneously improved. She is confused markedly unable to give much history. - Review of Systems Pulmonary: Reports: No Symptoms Cardiovascular: Reports: No Symptoms Gastrointestinal: Reports: No Symptoms - Patient Data Vitals - Most Recent: Last Vital Signs Temp 96.5 F L 04/13/21 17:05 Pulse 78 04/13/21 17:05 Resp 15 04/13/21 17:05 BP 125/57 L 04/13/21 17:05 Pulse Ox 99 04/13/21 17:05 Weight - Most Recent: 64.365 kg I&O - Last 24 Hours: Intake & Output 04/13/21 04/14/21 04/14/21 22:59 06:59 14:59 Intake Total 1000 1220 Balance 1000 1220 Lab Results Last 24 Hours: Laboratory Results - last 24 hr 04/14/21 04/14/21 04/14/21 Range/Units 06:28 06:28 06:28 WBC 12.6 H (3.0-10.3) x10-3/uL RBC 4.19 (3.60-5.20) x10(6)uL Hgb 11.9 (11.4-15.5) g/dL Hct 37.3 (34.2-48.2) % MCV 89.0 (76.7-100.5) fL MCH 28.4 (23.9-33.9) pg MCHC 32.0 (31.9-34.8) g/dL RDW 15.5 (12.3-16.5) % Plt Count 246 (151-488) x10(3)uL MPV 8.0 (7.1-12.4) fL Neut % (Auto) 83.6 H (30.8-76.2) % Lymph % (Auto) 8.7 L (18.4-52.1) % Dougherty % (Auto) 7.6 (4.4-15.7) % Eos % (Auto) 0.0 L (0.6-8.1) % Baso % (Auto) 0.1 L (0.2-1.5) % Neut # (Auto) 10.6 H (1.5-6.3) x10-3/uL Lymph # (Auto) 1.1 (1.0-4.4) x10-3/uL Dougherty # (Auto) 1.0 (0.3-1.0) x10-3/uL Eos # (Auto) 0.0 (0.0-0.8) x10-3/uL Baso # (Auto) 0.0 (0.0-0.1) x10-3/uL Sodium 146 H (135-145) mmol/L Potassium 4.8 (3.5-5.3) mmol/L Chloride 115 H (100-110) mmol/L Carbon Dioxide 17 L (21-32) mmol/L BUN 50 H D (7-18) mg/dL Creatinine 2.5 H* (0.55-1.02) mg/dL Est Cr Clr Drug Dosing 13.49 mL/min Estimated GFR (MDRD) 18 L (>60) BUN/Creatinine Ratio 20.0 (9-20) Glucose 153 H (80-116) mg/dL Calcium 8.2 L (8.6-10.2) mg/dL Troponin I 914.7 H* (4.0-60.3) pg/mL Rajendra Results Last 24 Hours: Microbiology 04/12/21 08:59 Urine Culture - Final Urine, Catheterized Escherichia Coli Med Orders - Current: Current Medications Aspirin (Aspirin 325 Mg Tab.Ec) 325 mg PO DAILY [facility] Last Admin: 04/13/21 11:23 Dose: 325 mg Documented by: Calcium Carbonate/Glycine (Calcium Carbonate 500 Mg Tablet) 500 mg PO DAILY [facility] Cholecalciferol (Cholecalciferol (Vitamin D3) 25 Mcg Tab) 125 mcg PO DAILY [facility] Citalopram Hydrobromide (Citalopram 10 Mg Tab) 10 mg PO DAILY [facility] Last Admin: 04/13/21 11:22 Dose: 10 mg Documented by: Donepezil HCl (Donepezil 10 Mg Tab) 10 mg PO DAILY@1200 [facility] Last Admin: 04/13/21 11:21 Dose: 10 mg Documented by: Enoxaparin Sodium (Enoxaparin 60 Mg/0.6 Ml Syringe) 60 mg SUBCUT Q24H [facility] Stop: 04/15/21 10:01 Last Admin: 04/13/21 11:23 Dose: 60 mg Documented by: Sodium Chloride (Normal Saline) 1,000 mls @ 150 mls/hr IV ASDIRECTED [facility] Last Admin: 04/14/21 04:33 Dose: 150 mls/hr Documented by: Metoprolol Succinate (Metoprolol Succinate 25 Mg Tab.Er) 25 mg PO DAILY [facility] Last Admin: 04/13/21 11:22 Dose: 25 mg Documented by: Morphine Sulfate (Morphine 2 Mg/Ml Syringe) 2 mg IVPUSH Q2H PRN PRN Reason: Pain (severe 7-10) Sodium Chloride (Sodium Chloride 0.9% 10 Ml Syringe) 10 ml FLUSH ASDIRECTED PRN PRN Reason: Keep Vein Open Discontinued Medications Sodium Chloride (Normal Saline) 1,000 mls @ 999 mls/hr IV .BOLUS ONE Stop: 04/12/21 09:41 Last Admin: 04/12/21 08:45 Dose: 999 mls/hr Documented by: Sodium Chloride (Normal Saline) 1,000 mls @ 999 mls/hr IV .BOLUS ONE Stop: 04/12/21 11:00 Last Admin: 04/12/21 10:00 Dose: 999 mls/hr Documented by: - Exam General: Alert, Lethargic. No: Oriented Neck: Supple Lungs: Crackles, Rales Cardiovascular: Regular Rate GI/Abdominal Exam: Normal Bowel Sounds, Soft #1 Interpretation EKG Date: 04/13/21 Rhythm: NSR Rate (Beats/Min): 71 Parkin: Normal Comparison: No Change - Patient Data Lab Results Last 24 hrs: Laboratory Results - last 24 hr 04/14/21 04/14/21 04/14/21 Range/Units 06:28 06:28 06:28 WBC 12.6 H (3.0-10.3) x10-3/uL RBC 4.19 (3.60-5.20) x10(6)uL Hgb 11.9 (11.4-15.5) g/dL Hct 37.3 (34.2-48.2) % MCV 89.0 (76.7-100.5) fL MCH 28.4 (23.9-33.9) pg MCHC 32.0 (31.9-34.8) g/dL RDW 15.5 (12.3-16.5) % Plt Count 246 (151-488) x10(3)uL MPV 8.0 (7.1-12.4) fL Neut % (Auto) 83.6 H (30.8-76.2) % Lymph % (Auto) 8.7 L (18.4-52.1) % Dougherty % (Auto) 7.6 (4.4-15.7) % Eos % (Auto) 0.0 L (0.6-8.1) % Baso % (Auto) 0.1 L (0.2-1.5) % Neut # (Auto) 10.6 H (1.5-6.3) x10-3/uL Lymph # (Auto) 1.1 (1.0-4.4) x10-3/uL Dougherty # (Auto) 1.0 (0.3-1.0) x10-3/uL Eos # (Auto) 0.0 (0.0-0.8) x10-3/uL Baso # (Auto) 0.0 (0.0-0.1) x10-3/uL Sodium 146 H (135-145) mmol/L Potassium 4.8 (3.5-5.3) mmol/L Chloride 115 H (100-110) mmol/L Carbon Dioxide 17 L (21-32) mmol/L BUN 50 H D (7-18) mg/dL Creatinine 2.5 H* (0.55-1.02) mg/dL Est Cr Clr Drug Dosing 13.49 mL/min Estimated GFR (MDRD) 18 L (>60) BUN/Creatinine Ratio 20.0 (9-20) Glucose 153 H (80-116) mg/dL Calcium 8.2 L (8.6-10.2) mg/dL Troponin I 914.7 H* (4.0-60.3) pg/mL Result Diagrams: 04/14/21 06:28 04/14/21 06:28 Rajendra Results Last 24 hrs: Microbiology 04/12/21 08:59 Urine Culture - Final Urine, Catheterized Escherichia Coli Sepsis Event Note - Evaluation Sepsis Screening Result: Possible Sepsis Risk - Problem List & Annotations (1) Myocardial infarction SNOMED Code(s): 49079577 Code(s): I21.9 - ACUTE MYOCARDIAL INFARCTION, UNSPECIFIED Status: Acute Current Visit: Yes Qualifiers: Myocardial infarction type: other Qualified Code(s): I21.A9 - Other myocardial infarction type; I21.A - Other type of myocardial infarction (2) YEYO (acute kidney injury) SNOMED Code(s): 97943131, 40421733 Code(s): N17.9 - ACUTE KIDNEY FAILURE, UNSPECIFIED Status: Acute Current Visit: Yes (3) Repeated falls SNOMED Code(s): 201935228 Code(s): R29.6 - REPEATED FALLS Status: Acute Current Visit: Yes (4) Alzheimer's dementia SNOMED Code(s): 78039979 Code(s): G30.9 - ALZHEIMER'S DISEASE, UNSPECIFIED; F02.80 - DEMENTIA IN OTH DISEASES CLASSD ELSWHR W/O BEHAVRL DISTURB Status: Acute Current Visit: Yes Qualifiers: Alzheimer's disease onset: late-onset (5) Respiratory failure with hypoxia SNOMED Code(s): 68184136210839078 Code(s): J96.91 - RESPIRATORY FAILURE, UNSPECIFIED WITH HYPOXIA Status: Acute Current Visit: Yes Qualifiers: Chronicity: acute Qualified Code(s): J96.01 - Acute respiratory failure with hypoxia (6) MDD (major depressive disorder) SNOMED Code(s): 274545668 Code(s): F32.9 - MAJOR DEPRESSIVE DISORDER, SINGLE EPISODE, UNSPECIFIED Status: Acute Current Visit: Yes Qualifiers: Major depression recurrence: recurrent (7) Spells of decreased attentiveness SNOMED Code(s): 99980060 Code(s): R68.89 - OTHER GENERAL SYMPTOMS AND SIGNS Status: Acute Current Visit: Yes - Problem List Review Problem List Initiated/Reviewed/Updated: Yes - My Orders Last 24 Hours: My Active Orders 04/13/21 09:00 Citalopram [Celexa] 10 mg PO DAILY 04/13/21 10:00 Aspirin [Ecotrin] 325 mg PO DAILY Enoxaparin [Lovenox] 60 mg SUBCUT Q24H Metoprolol Succinate [Toprol XL] 25 mg PO DAILY 04/13/21 12:00 Donepezil [Aricept] 10 mg PO DAILY@1200 04/13/21 13:55 EKG 12 Lead [EK] Routine 04/13/21 14:00 Oxygen Therapy Adult [Oxygen Therapy] [RC] ASDIRECTED 04/14/21 Breakfast Pureed Diet [DIET] 04/14/21 09:00 Calcium Carbonate [Oyster Shell Calcium] 500 mg PO DAILY Cholecalciferol (Vitamin D3) [Vitamin D3] 125 mcg PO DAILY 04/15/21 05:11 BASIC METABOLIC PANEL,BMP [CHEM] AM CBC WITH AUTO DIFF [HEME] AM - Plan Plan:: It's unclear what the etiology of the episodes is, but possibilities include acute cardiac event or neurologic event. Since the family is not interested in further care, or multiple tests. I will stop the fluids for now repeat labs the morning. Consider discharge to intermediate in the near future
[2021-04-14] MEDS: Donepezil 10 MG Tab PO SCH (12:10)
[2021-04-14] MEDS: Aspirin 325 MG Tab.EC PO SCH (20:06)
[2021-04-14] MEDS: Metoprolol Succinate 25 MG Tab.ER PO SCH (20:07)
[2021-04-15] MEDS: Citalopram 10 MG Tab PO SCH (09:26)
--- NOTE | 2021-04-15 09:28 | PCM.PN ---
- General Info Date of Service: 04/15/21 Subjective Update: Irena had 2 or 3 more episodes of unresponsiveness that resolved spontaneously. She has no concerns or complaints this morning. - Review of Systems Gastrointestinal: Reports: No Symptoms Genitourinary: Reports: No Symptoms Musculoskeletal: Reports: No Symptoms - Patient Data Vitals - Most Recent: Last Vital Signs Temp 98.3 F 04/14/21 22:30 Pulse 76 04/14/21 22:30 Resp 18 04/14/21 22:30 BP 139/83 04/14/21 22:30 Pulse Ox 97 04/14/21 22:30 Weight - Most Recent: 64.365 kg Lab Results Last 24 Hours: Laboratory Results - last 24 hr 04/15/21 04/15/21 Range/Units 05:57 05:57 WBC 12.0 H (3.0-10.3) x10-3/uL RBC 4.25 (3.60-5.20) x10(6)uL Hgb 12.0 (11.4-15.5) g/dL Hct 37.5 (34.2-48.2) % MCV 88.3 (76.7-100.5) fL MCH 28.3 (23.9-33.9) pg MCHC 32.1 (31.9-34.8) g/dL RDW 14.5 (12.3-16.5) % Plt Count 184 (151-488) x10(3)uL MPV 8.1 (7.1-12.4) fL Neut % (Auto) 80.4 H (30.8-76.2) % Lymph % (Auto) 10.6 L (18.4-52.1) % [place] % (Auto) 8.9 (4.4-15.7) % Eos % (Auto) 0.0 L (0.6-8.1) % Baso % (Auto) 0.1 L (0.2-1.5) % Neut # (Auto) 9.7 H (1.5-6.3) x10-3/uL Lymph # (Auto) 1.3 (1.0-4.4) x10-3/uL [place] # (Auto) 1.1 H (0.3-1.0) x10-3/uL Eos # (Auto) 0.0 (0.0-0.8) x10-3/uL Baso # (Auto) 0.0 (0.0-0.1) x10-3/uL Sodium 144 (135-145) mmol/L Potassium 4.3 (3.5-5.3) mmol/L Chloride 114 H (100-110) mmol/L Carbon Dioxide 15 L (21-32) mmol/L BUN 52 H (7-18) mg/dL Creatinine 1.9 H (0.55-1.02) mg/dL Est Cr Clr Drug Dosing 17.74 mL/min Estimated GFR (MDRD) 25 L (>60) BUN/Creatinine Ratio 27.4 H (9-20) Glucose 115 (80-116) mg/dL Calcium 8.7 (8.6-10.2) mg/dL Rajendra Results Last 24 Hours: Microbiology 04/12/21 08:59 Urine Culture - Final Urine, Catheterized Escherichia Coli Med Orders - Current: Current Medications Citalopram Hydrobromide (Citalopram 10 Mg Tab) 10 mg PO DAILY [facility] Last Admin: 04/15/21 09:26 Dose: 10 mg Documented by: Donepezil HCl (Donepezil 10 Mg Tab) 10 mg PO DAILY@1200 [facility] Last Admin: 04/14/21 12:10 Dose: Not Given Documented by: Morphine Sulfate (Morphine 2 Mg/Ml Syringe) 2 mg IVPUSH Q2H PRN PRN Reason: Pain (severe 7-10) Sodium Chloride (Sodium Chloride 0.9% 10 Ml Syringe) 10 ml FLUSH ASDIRECTED PRN PRN Reason: Keep Vein Open Discontinued Medications Aspirin (Aspirin 325 Mg Tab.Ec) 325 mg PO DAILY [facility] Last Admin: 04/14/21 20:06 Dose: Not Given Documented by: Calcium Carbonate/Glycine (Calcium Carbonate 500 Mg Tablet) 500 mg PO DAILY [facility] Last Admin: 04/14/21 20:07 Dose: Not Given Documented by: Cholecalciferol (Cholecalciferol (Vitamin D3) 25 Mcg Tab) 125 mcg PO DAILY [facility] Last Admin: 04/14/21 20:06 Dose: Not Given Documented by: Enoxaparin Sodium (Enoxaparin 60 Mg/0.6 Ml Syringe) 60 mg SUBCUT Q24H [facility] Stop: 04/15/21 10:01 Last Admin: 04/13/21 11:23 Dose: 60 mg Documented by: Sodium Chloride (Normal Saline) 1,000 mls @ 999 mls/hr IV .BOLUS ONE Stop: 04/12/21 09:41 Last Admin: 04/12/21 08:45 Dose: 999 mls/hr Documented by: Sodium Chloride (Normal Saline) 1,000 mls @ 999 mls/hr IV .BOLUS ONE Stop: 04/12/21 11:00 Last Admin: 04/12/21 10:00 Dose: 999 mls/hr Documented by: Sodium Chloride (Normal Saline) 1,000 mls @ 150 mls/hr IV ASDIRECTED [facility] Last Admin: 04/14/21 04:33 Dose: 150 mls/hr Documented by: Metoprolol Succinate (Metoprolol Succinate 25 Mg Tab.Er) 25 mg PO DAILY [facility] Last Admin: 04/14/21 20:07 Dose: Not Given Documented by: - Exam General: Alert Lungs: Clear to Auscultation Cardiovascular: Regular Rate GI/Abdominal Exam: Normal Bowel Sounds, Soft Extremities: Normal Inspection Neurological: No New Focal Deficit - Patient Data Lab Results Last 24 hrs: Laboratory Results - last 24 hr 04/15/21 04/15/21 Range/Units 05:57 05:57 WBC 12.0 H (3.0-10.3) x10-3/uL RBC 4.25 (3.60-5.20) x10(6)uL Hgb 12.0 (11.4-15.5) g/dL Hct 37.5 (34.2-48.2) % MCV 88.3 (76.7-100.5) fL MCH 28.3 (23.9-33.9) pg MCHC 32.1 (31.9-34.8) g/dL RDW 14.5 (12.3-16.5) % Plt Count 184 (151-488) x10(3)uL MPV 8.1 (7.1-12.4) fL Neut % (Auto) 80.4 H (30.8-76.2) % Lymph % (Auto) 10.6 L (18.4-52.1) % [place] % (Auto) 8.9 (4.4-15.7) % Eos % (Auto) 0.0 L (0.6-8.1) % Baso % (Auto) 0.1 L (0.2-1.5) % Neut # (Auto) 9.7 H (1.5-6.3) x10-3/uL Lymph # (Auto) 1.3 (1.0-4.4) x10-3/uL [place] # (Auto) 1.1 H (0.3-1.0) x10-3/uL Eos # (Auto) 0.0 (0.0-0.8) x10-3/uL Baso # (Auto) 0.0 (0.0-0.1) x10-3/uL Sodium 144 (135-145) mmol/L Potassium 4.3 (3.5-5.3) mmol/L Chloride 114 H (100-110) mmol/L Carbon Dioxide 15 L (21-32) mmol/L BUN 52 H (7-18) mg/dL Creatinine 1.9 H (0.55-1.02) mg/dL Est Cr Clr Drug Dosing 17.74 mL/min Estimated GFR (MDRD) 25 L (>60) BUN/Creatinine Ratio 27.4 H (9-20) Glucose 115 (80-116) mg/dL Calcium 8.7 (8.6-10.2) mg/dL Result Diagrams: 04/15/21 05:57 04/15/21 05:57 Rajendra Results Last 24 hrs: Microbiology 04/12/21 08:59 Urine Culture - Final Urine, Catheterized Escherichia Coli Sepsis Event Note - Evaluation Sepsis Screening Result: No Definite Risk - Focused Exam Vital Signs: Vital Signs Temp Pulse Resp BP Pulse Ox 04/14/21 22:30 98.3 F 76 18 139/83 97 - Problem List & Annotations (1) Myocardial infarction SNOMED Code(s): 57453351 Code(s): I21.9 - ACUTE MYOCARDIAL INFARCTION, UNSPECIFIED Status: Acute Current Visit: Yes Qualifiers: Myocardial infarction type: other Qualified Code(s): I21.A9 - Other myocardial infarction type; I21.A - Other type of myocardial infarction (2) YEYO (acute kidney injury) SNOMED Code(s): 83590015, 47966110 Code(s): N17.9 - ACUTE KIDNEY FAILURE, UNSPECIFIED Status: Acute Current Visit: Yes (3) Repeated falls SNOMED Code(s): 385672387 Code(s): R29.6 - REPEATED FALLS Status: Acute Current Visit: Yes (4) Alzheimer's dementia SNOMED Code(s): 80088858 Code(s): G30.9 - ALZHEIMER'S DISEASE, UNSPECIFIED; F02.80 - DEMENTIA IN OTH DISEASES CLASSD ELSWHR W/O BEHAVRL DISTURB Status: Acute Current Visit: Yes Qualifiers: Alzheimer's disease onset: late-onset (5) Respiratory failure with hypoxia SNOMED Code(s): 32560481804753379 Code(s): J96.91 - RESPIRATORY FAILURE, UNSPECIFIED WITH HYPOXIA Status: Acute Current Visit: Yes Qualifiers: Chronicity: acute Qualified Code(s): J96.01 - Acute respiratory failure with hypoxia (6) MDD (major depressive disorder) SNOMED Code(s): 015216264 Code(s): F32.9 - MAJOR DEPRESSIVE DISORDER, SINGLE EPISODE, UNSPECIFIED Status: Acute Current Visit: Yes Qualifiers: Major depression recurrence: recurrent (7) Spells of decreased attentiveness SNOMED Code(s): 85791802 Code(s): R68.89 - OTHER GENERAL SYMPTOMS AND SIGNS Status: Acute Current Visit: Yes - Problem List Review Problem List Initiated/Reviewed/Updated: Yes - Plan Plan:: Patient on comfort measures.
[2021-04-15] MEDS: Donepezil 10 MG Tab PO SCH (12:35)
[2021-04-16] MEDS: Citalopram 10 MG Tab PO SCH (09:01)
--- NOTE | 2021-04-16 09:11 | PCM.PN ---
- General Info Date of Service: 04/16/21 Subjective Update: Patient mostly sleeping. The was here yesterday, had a conversation with her yesterday for about an hour, but she went back to sleep.No more episodes of unresponsiveness. - Patient Data Vitals - Most Recent: Last Vital Signs Temp 96.6 F L 04/15/21 07:35 Pulse 72 04/15/21 07:35 Resp 20 04/15/21 07:35 BP 124/60 04/15/21 07:35 Pulse Ox 92 L 04/15/21 07:35 Weight - Most Recent: 64.365 kg Med Orders - Current: Current Medications Citalopram Hydrobromide (Citalopram 10 Mg Tab) 10 mg PO DAILY [facility] Last Admin: 04/16/21 09:01 Dose: 10 mg Documented by: Donepezil HCl (Donepezil 10 Mg Tab) 10 mg PO DAILY@1200 [facility] Last Admin: 04/15/21 12:35 Dose: 10 mg Documented by: Morphine Sulfate (Morphine 2 Mg/Ml Syringe) 2 mg IVPUSH Q2H PRN PRN Reason: Pain (severe 7-10) Sodium Chloride (Sodium Chloride 0.9% 10 Ml Syringe) 10 ml FLUSH ASDIRECTED PRN PRN Reason: Keep Vein Open Discontinued Medications Aspirin (Aspirin 325 Mg Tab.Ec) 325 mg PO DAILY [facility] Last Admin: 04/14/21 20:06 Dose: Not Given Documented by: Calcium Carbonate/Glycine (Calcium Carbonate 500 Mg Tablet) 500 mg PO DAILY [facility] Last Admin: 04/14/21 20:07 Dose: Not Given Documented by: Cholecalciferol (Cholecalciferol (Vitamin D3) 25 Mcg Tab) 125 mcg PO DAILY [facility] Last Admin: 04/14/21 20:06 Dose: Not Given Documented by: Enoxaparin Sodium (Enoxaparin 60 Mg/0.6 Ml Syringe) 60 mg SUBCUT Q24H [facility] Stop: 04/15/21 10:01 Last Admin: 04/13/21 11:23 Dose: 60 mg Documented by: Sodium Chloride (Normal Saline) 1,000 mls @ 999 mls/hr IV .BOLUS ONE Stop: 04/12/21 09:41 Last Admin: 04/12/21 08:45 Dose: 999 mls/hr Documented by: Sodium Chloride (Normal Saline) 1,000 mls @ 999 mls/hr IV .BOLUS ONE Stop: 04/12/21 11:00 Last Admin: 04/12/21 10:00 Dose: 999 mls/hr Documented by: Sodium Chloride (Normal Saline) 1,000 mls @ 150 mls/hr IV ASDIRECTED [facility] Last Admin: 04/14/21 04:33 Dose: 150 mls/hr Documented by: Metoprolol Succinate (Metoprolol Succinate 25 Mg Tab.Er) 25 mg PO DAILY [facility] Last Admin: 04/14/21 20:07 Dose: Not Given Documented by: - Exam General: Lethargic #1 Interpretation EKG Date: 05/13/21 Rhythm: NSR Rate (Beats/Min): 71 [place]: Normal P-Wave: Present Comparison: No Change - Patient Data Result Diagrams: 04/15/21 05:57 04/15/21 05:57 Sepsis Event Note - Evaluation Sepsis Screening Result: No Definite Risk - Problem List & Annotations (1) Myocardial infarction SNOMED Code(s): 12833076 Code(s): I21.9 - ACUTE MYOCARDIAL INFARCTION, UNSPECIFIED Status: Acute Current Visit: Yes Qualifiers: Myocardial infarction type: other Qualified Code(s): I21.A9 - Other myocardial infarction type; I21.A - Other type of myocardial infarction (2) YEYO (acute kidney injury) SNOMED Code(s): 48095765, 88407864 Code(s): N17.9 - ACUTE KIDNEY FAILURE, UNSPECIFIED Status: Acute Current Visit: Yes (3) Repeated falls SNOMED Code(s): 121959611 Code(s): R29.6 - REPEATED FALLS Status: Acute Current Visit: Yes (4) Alzheimer's dementia SNOMED Code(s): 96321432 Code(s): G30.9 - ALZHEIMER'S DISEASE, UNSPECIFIED; F02.80 - DEMENTIA IN OTH DISEASES CLASSD ELSWHR W/O BEHAVRL DISTURB Status: Acute Current Visit: Yes Qualifiers: Alzheimer's disease onset: late-onset (5) Respiratory failure with hypoxia SNOMED Code(s): 91443735112524208 Code(s): J96.91 - RESPIRATORY FAILURE, UNSPECIFIED WITH HYPOXIA Status: Acute Current Visit: Yes Qualifiers: Chronicity: acute Qualified Code(s): J96.01 - Acute respiratory failure with hypoxia (6) MDD (major depressive disorder) SNOMED Code(s): 503029197 Code(s): F32.9 - MAJOR DEPRESSIVE DISORDER, SINGLE EPISODE, UNSPECIFIED Sta tus: Acute Current Visit: Yes Qualifiers: Major depression recurrence: recurrent (7) Spells of decreased attentiveness SNOMED Code(s): 00725120 Code(s): R68.89 - OTHER GENERAL SYMPTOMS AND SIGNS Status: Acute Current Visit: Yes - Problem List Review Problem List Initiated/Reviewed/Updated: Yes - Plan Plan:: Patient on comfort measures. I had a long discussion with the family at bedside. Answered their questions. There is a plan in place to begin looking [facility] a [facility].
[2021-04-16] MEDS: Donepezil 10 MG Tab PO SCH (12:11)
--- NOTE | 2021-04-17 08:06 | PCM.PN ---
- General Info Date of Service: 04/17/21 Admission Dx/Problem (Free Text): Patient wakes up and talks to me. She has no concerns today. She denies fevers, chills, chest pain, shortness of breath, cough, leg swelling. - Patient Data Vitals - Most Recent: Last Vital Signs Temp 97.4 F 04/16/21 09:00 Pulse 82 04/16/21 09:00 Resp 20 04/16/21 09:00 BP 167/83 H 04/16/21 09:00 Pulse Ox 93 L 04/16/21 09:00 Weight - Most Recent: 141 lb 14.4 oz Med Orders - Current: Current Medications Citalopram Hydrobromide (Citalopram 10 Mg Tab) 10 mg PO DAILY [facility] Last Admin: 04/16/21 09:01 Dose: 10 mg Documented by: Donepezil HCl (Donepezil 10 Mg Tab) 10 mg PO DAILY@1200 [facility] Last Admin: 04/16/21 12:11 Dose: 10 mg Documented by: Morphine Sulfate (Morphine 2 Mg/Ml Syringe) 2 mg IVPUSH Q2H PRN PRN Reason: Pain (severe 7-10) Sodium Chloride (Sodium Chloride 0.9% 10 Ml Syringe) 10 ml FLUSH ASDIRECTED PRN PRN Reason: Keep Vein Open Discontinued Medications Aspirin (Aspirin 325 Mg Tab.Ec) 325 mg PO DAILY [facility] Last Admin: 04/14/21 20:06 Dose: Not Given Documented by: Calcium Carbonate/Glycine (Calcium Carbonate 500 Mg Tablet) 500 mg PO DAILY [facility] Last Admin: 04/14/21 20:07 Dose: Not Given Documented by: Cholecalciferol (Cholecalciferol (Vitamin D3) 25 Mcg Tab) 125 mcg PO DAILY [facility] Last Admin: 04/14/21 20:06 Dose: Not Given Documented by: Enoxaparin Sodium (Enoxaparin 60 Mg/0.6 Ml Syringe) 60 mg SUBCUT Q24H [facility] Stop: 04/15/21 10:01 Last Admin: 04/13/21 11:23 Dose: 60 mg Documented by: Sodium Chloride (Normal Saline) 1,000 mls @ 999 mls/hr IV .BOLUS ONE Stop: 04/12/21 09:41 Last Admin: 04/12/21 08:45 Dose: 999 mls/hr Documented by: Sodium Chloride (Normal Saline) 1,000 mls @ 999 mls/hr IV .BOLUS ONE Stop: 04/12/21 11:00 Last Admin: 04/12/21 10:00 Dose: 999 mls/hr Documented by: Sodium Chloride (Normal Saline) 1,000 mls @ 150 mls/hr IV ASDIRECTED [facility] Last Admin: 04/14/21 04:33 Dose: 150 mls/hr Documented by: Metoprolol Succinate (Metoprolol Succinate 25 Mg Tab.Er) 25 mg PO DAILY [facility] Last Admin: 04/14/21 20:07 Dose: Not Given Documented by: - Exam General: Alert, Cooperative. No: Oriented Neck: Supple Lungs: Clear to Auscultation, Normal Respiratory Effort Cardiovascular: Regular Rate, Regular Rhythm, No Murmurs GI/Abdominal Exam: Normal Bowel Sounds, Soft, Non-Tender Extremities: No Pedal Edema - Patient Data Result Diagrams: 04/15/21 05:57 04/15/21 05:57 Sepsis Event Note - Evaluation Sepsis Screening Result: No Definite Risk - Problem List & Annotations (1) Palliative care status SNOMED Code(s): 945795463 Code(s): Z51.5 - ENCOUNTER FOR PALLIATIVE CARE Status: Acute Current Visit: Yes (2) YEYO (acute kidney injury) SNOMED Code(s): 17402932, 41202533 Code(s): N17.9 - ACUTE KIDNEY FAILURE, UNSPECIFIED Status: Acute Current Visit: Yes (3) Alzheimer's dementia SNOMED Code(s): 86985572 Code(s): G30.9 - ALZHEIMER'S DISEASE, UNSPECIFIED; F02.80 - DEMENTIA IN OTH DISEASES CLASSD ELSWHR W/O BEHAVRL DISTURB Status: Acute Current Visit: Yes Qualifiers: Alzheimer's disease onset: late-onset (4) MDD (major depressive disorder) SNOMED Code(s): 712425535 Code(s): F32.9 - MAJOR DEPRESSIVE DISORDER, SINGLE EPISODE, UNSPECIFIED Status: Acute Current Visit: Yes Qualifiers: Major depression recurrence: recurrent (5) Myocardial infarction SNOMED Code(s): 77258625 Code(s): I21.9 - ACUTE MYOCARDIAL INFARCTION, UNSPECIFIED Status: Acute Current Visit: Yes Qualifiers: Myocardial infarction type: other Qualified Code(s): I21.A9 - Other myocardial infarction type; I21.A - Other type of myocardial infarction (6) Repeated falls SNOMED Code(s): 807051771 Code(s): R29.6 - REPEATED FALLS Status: Acute Current Visit: Yes (7) Respiratory failure with hypoxia SNOMED Code(s): 24415103073305379 Code(s): J96.91 - RESPIRATORY FAILURE, UNSPECIFIED WITH HYPOXIA Status: Acute Current Visit: Yes Qualifiers: Chronicity: acute Qualified Code(s): J96.01 - Acute respiratory failure with hypoxia (8) Spells of decreased attentiveness SNOMED Code(s): 21371144 Code(s): R68.89 - OTHER GENERAL SYMPTOMS AND SIGNS Status: Acute Current Visit: Yes - Problem List Review Problem List Initiated/Reviewed/Updated: Yes - Plan Plan:: 1. Continue comfort cares. 2. [facility] a [facility] at [facility].
[2021-04-17] MEDS: Citalopram 10 MG Tab PO SCH (09:03)
[2021-04-17] MEDS: Donepezil 10 MG Tab PO SCH (12:11)
[2021-04-18] MEDS: Citalopram 10 MG Tab PO SCH (08:46)
--- NOTE | 2021-04-18 08:54 | PCM.PN ---
- General Info Date of Service: 04/18/21 Admission Dx/Problem (Free Text): Patient denies any problems today. Denies fevers, chills, cough, leg swelling, chest pain. - Patient Data Vitals - Most Recent: Last Vital Signs Temp 98.0 F 04/17/21 08:00 Pulse 84 04/17/21 08:00 Resp 18 04/17/21 08:00 BP 171/85 H 04/17/21 08:00 Pulse Ox 97 04/17/21 08:00 Weight - Most Recent: 141 lb 14.4 oz Med Orders - Current: Current Medications Citalopram Hydrobromide (Citalopram 10 Mg Tab) 10 mg PO DAILY [facility] Last Admin: 04/18/21 08:46 Dose: 10 mg Documented by: Donepezil HCl (Donepezil 10 Mg Tab) 10 mg PO DAILY@1200 [facility] Last Admin: 04/17/21 12:11 Dose: 10 mg Documented by: Morphine Sulfate (Morphine 2 Mg/Ml Syringe) 2 mg IVPUSH Q2H PRN PRN Reason: Pain (severe 7-10) Sodium Chloride (Sodium Chloride 0.9% 10 Ml Syringe) 10 ml FLUSH ASDIRECTED PRN PRN Reason: Keep Vein Open Discontinued Medications Aspirin (Aspirin 325 Mg Tab.Ec) 325 mg PO DAILY [facility] Last Admin: 04/14/21 20:06 Dose: Not Given Documented by: Calcium Carbonate/Glycine (Calcium Carbonate 500 Mg Tablet) 500 mg PO DAILY [facility] Last Admin: 04/14/21 20:07 Dose: Not Given Documented by: Cholecalciferol (Cholecalciferol (Vitamin D3) 25 Mcg Tab) 125 mcg PO DAILY [facility] Last Admin: 04/14/21 20:06 Dose: Not Given Documented by: Enoxaparin Sodium (Enoxaparin 60 Mg/0.6 Ml Syringe) 60 mg SUBCUT Q24H [facility] Stop: 04/15/21 10:01 Last Admin: 04/13/21 11:23 Dose: 60 mg Documented by: Sodium Chloride (Normal Saline) 1,000 mls @ 999 mls/hr IV .BOLUS ONE Stop: 04/12/21 09:41 Last Admin: 04/12/21 08:45 Dose: 999 mls/hr Documented by: Sodium Chloride (Normal Saline) 1,000 mls @ 999 mls/hr IV .BOLUS ONE Stop: 04/12/21 11:00 Last Admin: 04/12/21 10:00 Dose: 999 mls/hr Documented by: Sodium Chloride (Normal Saline) 1,000 mls @ 150 mls/hr IV ASDIRECTED [facility] Last Admin: 04/14/21 04:33 Dose: 150 mls/hr Documented by: Metoprolol Succinate (Metoprolol Succinate 25 Mg Tab.Er) 25 mg PO DAILY [facility] Last Admin: 04/14/21 20:07 Dose: Not Given Documented by: - Exam General: Alert, Cooperative. No: Oriented Neck: Supple Lungs: Clear to Auscultation, Normal Respiratory Effort Cardiovascular: Regular Rate, Regular Rhythm, No Murmurs Extremities: No Pedal Edema - Patient Data Result Diagrams: 04/15/21 05:57 04/15/21 05:57 Sepsis Event Note - Evaluation Sepsis Screening Result: No Definite Risk - Problem List & Annotations (1) Palliative care status SNOMED Code(s): 569667897 Code(s): Z51.5 - ENCOUNTER FOR PALLIATIVE CARE Status: Acute Current Visit: Yes (2) YEYO (acute kidney injury) SNOMED Code(s): 87861336, 34031539 Code(s): N17.9 - ACUTE KIDNEY FAILURE, UNSPECIFIED Status: Acute Current Visit: Yes (3) Alzheimer's dementia SNOMED Code(s): 90097591 Code(s): G30.9 - ALZHEIMER'S DISEASE, UNSPECIFIED; F02.80 - DEMENTIA IN OTH DISEASES CLASSD ELSWHR W/O BEHAVRL DISTURB Status: Acute Current Visit: Yes Qualifiers: Alzheimer's disease onset: late-onset (4) MDD (major depressive disorder) SNOMED Code(s): 244285597 Code(s): F32.9 - MAJOR DEPRESSIVE DISORDER, SINGLE EPISODE, UNSPECIFIED Status: Acute Current Visit: Yes Qualifiers: Major depression recurrence: recurrent (5) Myocardial infarction SNOMED Code(s): 12767927 Code(s): I21.9 - ACUTE MYOCARDIAL INFARCTION, UNSPECIFIED Status: Acute Current Visit: Yes Qualifiers: Myocardial infarction type: other Qualified Code(s): I21.A9 - Other myocardial infarction type; I21.A - Other type of myocardial infarction (6) Repeated falls SNOMED Code(s): 384202091 Code(s): R29.6 - REPEATED FALLS Status: Acute Current Visit: Yes (7) Respiratory failure with hypoxia SNOMED Code(s): 26036899186767928 Code(s): J96.91 - RESPIRATORY FAILURE, UNSPECIFIED WITH HYPOXIA Status: Acute Current Visit: Yes Qualifiers: Chronicity: acute Qualified Code(s): J96.01 - Acute respiratory failure with hypoxia (8) Spells of decreased attentiveness SNOMED Code(s): 36974555 Code(s): R68.89 - OTHER GENERAL SYMPTOMS AND SIGNS Status: Acute Current Visit: Yes - Problem List Review Problem List Initiated/Reviewed/Updated: Yes - My Orders Last 24 Hours: My Active Orders 04/17/21 11:19 Consult to Hospice [CONS] Routine - Plan Plan:: 1. Continue comfort cares. 2. Looking for placement at a detention at this time.
[2021-04-18] MEDS: Donepezil 10 MG Tab PO SCH (12:51)
--- NOTE | 2021-04-19 07:49 | PCM.PN ---
- General Info Date of Service: 04/19/21 Admission Dx/Problem (Free Text): Patient without concerns. Denies fevers, chills, chest pain, shortness of breath or leg swelling. - Patient Data Vitals - Most Recent: Last Vital Signs Temp 96.5 F L 04/18/21 08:00 Pulse 78 04/18/21 08:00 Resp 16 04/18/21 08:00 BP 150/74 H 04/18/21 08:00 Pulse Ox 98 04/18/21 08:00 Weight - Most Recent: 141 lb 14.4 oz Med Orders - Current: Current Medications Citalopram Hydrobromide (Citalopram 10 Mg Tab) 10 mg PO DAILY [facility] Last Admin: 04/18/21 08:46 Dose: 10 mg Documented by: Donepezil HCl (Donepezil 10 Mg Tab) 10 mg PO DAILY@1200 [facility] Last Admin: 04/18/21 12:51 Dose: 10 mg Documented by: Morphine Sulfate (Morphine 2 Mg/Ml Syringe) 2 mg IVPUSH Q2H PRN PRN Reason: Pain (severe 7-10) Sodium Chloride (Sodium Chloride 0.9% 10 Ml Syringe) 10 ml FLUSH ASDIRECTED PRN PRN Reason: Keep Vein Open Discontinued Medications Aspirin (Aspirin 325 Mg Tab.Ec) 325 mg PO DAILY [facility] Last Admin: 04/14/21 20:06 Dose: Not Given Documented by: Calcium Carbonate/Glycine (Calcium Carbonate 500 Mg Tablet) 500 mg PO DAILY [facility] Last Admin: 04/14/21 20:07 Dose: Not Given Documented by: Cholecalciferol (Cholecalciferol (Vitamin D3) 25 Mcg Tab) 125 mcg PO DAILY [facility] Last Admin: 04/14/21 20:06 Dose: Not Given Documented by: Enoxaparin Sodium (Enoxaparin 60 Mg/0.6 Ml Syringe) 60 mg SUBCUT Q24H [facility] Stop: 04/15/21 10:01 Last Admin: 04/13/21 11:23 Dose: 60 mg Documented by: Sodium Chloride (Normal Saline) 1,000 mls @ 999 mls/hr IV .BOLUS ONE Stop: 04/12/21 09:41 Last Admin: 04/12/21 08:45 Dose: 999 mls/hr Documented by: Sodium Chloride (Normal Saline) 1,000 mls @ 999 mls/hr IV .BOLUS ONE Stop: 04/12/21 11:00 Last Admin: 04/12/21 10:00 Dose: 999 mls/hr Documented by: Sodium Chloride (Normal Saline) 1,000 mls @ 150 mls/hr IV ASDIRECTED [facility] Last Admin: 04/14/21 04:33 Dose: 150 mls/hr Documented by: Metoprolol Succinate (Metoprolol Succinate 25 Mg Tab.Er) 25 mg PO DAILY [facility] Last Admin: 04/14/21 20:07 Dose: Not Given Documented by: - Exam General: Alert, Cooperative. No: Oriented Lungs: Clear to Auscultation, Normal Respiratory Effort Cardiovascular: Regular Rate, Regular Rhythm, Murmurs Extremities: No Pedal Edema - Patient Data Result Diagrams: 04/15/21 05:57 04/15/21 05:57 Sepsis Event Note - Evaluation Sepsis Screening Result: No Definite Risk - Problem List & Annotations (1) Palliative care status SNOMED Code(s): 903215063 Code(s): Z51.5 - ENCOUNTER FOR PALLIATIVE CARE Status: Acute Current Visit: Yes (2) YEYO (acute kidney injury) SNOMED Code(s): 91508798, 37077333 Code(s): N17.9 - ACUTE KIDNEY FAILURE, UNSPECIFIED Status: Acute Current Visit: Yes (3) Alzheimer's dementia SNOMED Code(s): 84456526 Code(s): G30.9 - ALZHEIMER'S DISEASE, UNSPECIFIED; F02.80 - DEMENTIA IN OTH DISEASES CLASSD ELSWHR W/O BEHAVRL DISTURB Status: Acute Current Visit: Yes Qualifiers: Alzheimer's disease onset: late-onset (4) MDD (major depressive disorder) SNOMED Code(s): 729650537 Code(s): F32.9 - MAJOR DEPRESSIVE DISORDER, SINGLE EPISODE, UNSPECIFIED Sta tus: Acute Current Visit: Yes Qualifiers: Major depression recurrence: recurrent (5) Myocardial infarction SNOMED Code(s): 92712972 Code(s): I21.9 - ACUTE MYOCARDIAL INFARCTION, UNSPECIFIED Status: Acute Current Visit: Yes Qualifiers: Myocardial infarction type: other Qualified Code(s): I21.A9 - Other myocardial infarction type; I21.A - Other type of myocardial infarction (6) Repeated falls SNOMED Code(s): 505867850 Code(s): R29.6 - REPEATED FALLS Status: Acute Current Visit: Yes (7) Respiratory failure with hypoxia SNOMED Code(s): 01957362795316724 Code(s): J96.91 - RESPIRATORY FAILURE, UNSPECIFIED WITH HYPOXIA Status: Acute Current Visit: Yes Qualifiers: Chronicity: acute Qualified Code(s): J96.01 - Acute respiratory failure with hypoxia (8) Spells of decreased attentiveness SNOMED Code(s): 29322986 Code(s): R68.89 - OTHER GENERAL SYMPTOMS AND SIGNS Status: Acute Current Visit: Yes - Problem List Review Problem List Initiated/Reviewed/Updated: Yes - Plan Plan:: 1. Continue comfort cares. 2. Looking for placement at a [facility] at this time.
[2021-04-19] MEDS: Citalopram 10 MG Tab PO SCH (08:40)
[2021-04-19] MEDS: Donepezil 10 MG Tab PO SCH (11:17)
--- NOTE | 2021-04-20 09:04 | PCM.PN ---
- General Info Date of Service: 04/20/21 Admission Dx/Problem (Free Text): Without complaints. Denies fevers, chills, cough, shortness of breath. - Patient Data Vitals - Most Recent: Last Vital Signs Temp 96.8 F L 04/19/21 08:00 Pulse 70 04/19/21 08:00 Resp 16 04/19/21 08:00 BP 162/72 H 04/19/21 08:00 Pulse Ox 97 04/19/21 08:00 Weight - Most Recent: 141 lb 14.4 oz Lab Results Last 24 Hours: Laboratory Results - last 24 hr 04/20/21 Range/Units 06:55 SARS-CoV-2 RNA ([facility]) Negative (NEGATIVE) Med Orders - Current: Current Medications Citalopram Hydrobromide (Citalopram 10 Mg Tab) 10 mg PO DAILY [facility] Last Admin: 04/19/21 08:40 Dose: 10 mg Documented by: Donepezil HCl (Donepezil 10 Mg Tab) 10 mg PO DAILY@1200 [facility] Last Admin: 04/19/21 11:17 Dose: 10 mg Documented by: Morphine Sulfate (Morphine 2 Mg/Ml Syringe) 2 mg IVPUSH Q2H PRN PRN Reason: Pain (severe 7-10) Sodium Chloride (Sodium Chloride 0.9% 10 Ml Syringe) 10 ml FLUSH ASDIRECTED PRN PRN Reason: Keep Vein Open Discontinued Medications Aspirin (Aspirin 325 Mg Tab.Ec) 325 mg PO DAILY [facility] Last Admin: 04/14/21 20:06 Dose: Not Given Documented by: Calcium Carbonate/Glycine (Calcium Carbonate 500 Mg Tablet) 500 mg PO DAILY [facility] Last Admin: 04/14/21 20:07 Dose: Not Given Documented by: Cholecalciferol (Cholecalciferol (Vitamin D3) 25 Mcg Tab) 125 mcg PO DAILY [facility] Last Admin: 04/14/21 20:06 Dose: Not Given Documented by: Enoxaparin Sodium (Enoxaparin 60 Mg/0.6 Ml Syringe) 60 mg SUBCUT Q24H [facility] Stop: 04/15/21 10:01 Last Admin: 04/13/21 11:23 Dose: 60 mg Documented by: Sodium Chloride (Normal Saline) 1,000 mls @ 999 mls/hr IV .BOLUS ONE Stop: 04/12/21 09:41 Last Admin: 04/12/21 08:45 Dose: 999 mls/hr Documented by: Sodium Chloride (Normal Saline) 1,000 mls @ 999 mls/hr IV .BOLUS ONE Stop: 04/12/21 11:00 Last Admin: 04/12/21 10:00 Dose: 999 mls/hr Documented by: Sodium Chloride (Normal Saline) 1,000 mls @ 150 mls/hr IV ASDIRECTED [facility] Last Admin: 04/14/21 04:33 Dose: 150 mls/hr Documented by: Metoprolol Succinate (Metoprolol Succinate 25 Mg Tab.Er) 25 mg PO DAILY [facility] Last Admin: 04/14/21 20:07 Dose: Not Given Documented by: - Exam General: Alert, Cooperative. No: Oriented Neck: Supple Lungs: Clear to Auscultation, Normal Respiratory Effort Cardiovascular: Regular Rate, Regular Rhythm, Murmurs - Patient Data Lab Results Last 24 hrs: Laboratory Results - last 24 hr 04/20/21 Range/Units 06:55 SARS-CoV-2 RNA ([facility]INO) Negative (NEGATIVE) Result Diagrams: 04/15/21 05:57 04/15/21 05:57 Sepsis Event Note - Evaluation Sepsis Screening Result: No Definite Risk - Problem List & Annotations (1) Palliative care status SNOMED Code(s): 447824854 Code(s): Z51.5 - ENCOUNTER FOR PALLIATIVE CARE Status: Acute Current Visit: Yes (2) YEYO (acute kidney injury) SNOMED Code(s): 60365699, 82619516 Code(s): N17.9 - ACUTE KIDNEY FAILURE, UNSPECIFIED Status: Acute Current Visit: Yes (3) Alzheimer's dementia SNOMED Code(s): 29732975 Code(s): G30.9 - ALZHEIMER'S DISEASE, UNSPECIFIED; F02.80 - DEMENTIA IN OTH DISEASES CLASSD ELSWHR W/O BEHAVRL DISTURB Status: Acute Current Visit: Yes Qualifiers: Alzheimer's disease onset: late-onset (4) MDD (major depressive disorder) SNOMED Code(s): 618536389 Code(s): F32.9 - MAJOR DEPRESSIVE DISORDER, SINGLE EPISODE, UNSPECIFIED Sta tus: Acute Current Visit: Yes Qualifiers: Major depression recurrence: recurrent (5) Myocardial infarction SNOMED Code(s): 35195155 Code(s): I21.9 - ACUTE MYOCARDIAL INFARCTION, UNSPECIFIED Status: Acute Current Visit: Yes Qualifiers: Myocardial infarction type: other Qualified Code(s): I21.A9 - Other myocardial infarction type; I21.A - Other type of myocardial infarction (6) Repeated falls SNOMED Code(s): 513512085 Code(s): R29.6 - REPEATED FALLS Status: Acute Current Visit: Yes (7) Respiratory failure with hypoxia SNOMED Code(s): 61963583502098336 Code(s): J96.91 - RESPIRATORY FAILURE, UNSPECIFIED WITH HYPOXIA Status: Acute Current Visit: Yes Qualifiers: Chronicity: acute Qualified Code(s): J96.01 - Acute respiratory failure with hypoxia (8) Spells of decreased attentiveness SNOMED Code(s): 85133182 Code(s): R68.89 - OTHER GENERAL SYMPTOMS AND SIGNS Status: Acute Current Visit: Yes - Problem List Review Problem List Initiated/Reviewed/Updated: Yes - My Orders Last 24 Hours: My Active Orders 04/20/21 08:38 Consult to Occupational Therapy [OT Evaluation and Treatment] [CONS] Routine Consult to Physical Therapy [PT Evaluation and Treatment] [CONS] Routine - Plan Plan:: 1. Continue comfort cares. 2. Looking for placement at a [facility] at this time.
[2021-04-20] MEDS: Citalopram 10 MG Tab PO SCH (09:11)
[2021-04-20] MEDS: Donepezil 10 MG Tab PO SCH (14:00)
--- NOTE | 2021-04-21 08:50 | PCM.PN ---
- General Info Date of Service: 04/21/21 Admission Dx/Problem (Free Text): Patient with no complaints. Denies fevers, chills, chest pain or leg swelling. - Patient Data Vitals - Most Recent: Last Vital Signs Temp 98.4 F 04/20/21 08:00 Pulse 66 04/20/21 08:00 Resp 18 04/20/21 08:00 BP 171/61 H 04/20/21 08:00 Pulse Ox 97 04/20/21 08:00 Weight - Most Recent: 141 lb 14.4 oz Med Orders - Current: Current Medications Citalopram Hydrobromide (Citalopram 10 Mg Tab) 10 mg PO DAILY [facility] Last Admin: 04/20/21 09:11 Dose: 10 mg Documented by: Donepezil HCl (Donepezil 10 Mg Tab) 10 mg PO DAILY@1200 [facility] Last Admin: 04/20/21 14:00 Dose: 10 mg Documented by: Morphine Sulfate (Morphine 2 Mg/Ml Syringe) 2 mg IVPUSH Q2H PRN PRN Reason: Pain (severe 7-10) Sodium Chloride (Sodium Chloride 0.9% 10 Ml Syringe) 10 ml FLUSH ASDIRECTED PRN PRN Reason: Keep Vein Open Discontinued Medications Aspirin (Aspirin 325 Mg Tab.Ec) 325 mg PO DAILY [facility] Last Admin: 04/14/21 20:06 Dose: Not Given Documented by: Calcium Carbonate/Glycine (Calcium Carbonate 500 Mg Tablet) 500 mg PO DAILY [facility] Last Admin: 04/14/21 20:07 Dose: Not Given Documented by: Cholecalciferol (Cholecalciferol (Vitamin D3) 25 Mcg Tab) 125 mcg PO DAILY [facility] Last Admin: 04/14/21 20:06 Dose: Not Given Documented by: Enoxaparin Sodium (Enoxaparin 60 Mg/0.6 Ml Syringe) 60 mg SUBCUT Q24H [facility] Stop: 04/15/21 10:01 Last Admin: 04/13/21 11:23 Dose: 60 mg Documented by: Sodium Chloride (Normal Saline) 1,000 mls @ 999 mls/hr IV .BOLUS ONE Stop: 04/12/21 09:41 Last Admin: 04/12/21 08:45 Dose: 999 mls/hr Documented by: Sodium Chloride (Normal Saline) 1,000 mls @ 999 mls/hr IV .BOLUS ONE Stop: 04/12/21 11:00 Last Admin: 04/12/21 10:00 Dose: 999 mls/hr Documented by: Sodium Chloride (Normal Saline) 1,000 mls @ 150 mls/hr IV ASDIRECTED [facility] Last Admin: 04/14/21 04:33 Dose: 150 mls/hr Documented by: Metoprolol Succinate (Metoprolol Succinate 25 Mg Tab.Er) 25 mg PO DAILY [facility] Last Admin: 04/14/21 20:07 Dose: Not Given Documented by: - Exam General: Alert, Cooperative. No: Oriented Lungs: Clear to Auscultation, Normal Respiratory Effort Cardiovascular: Regular Rate, Regular Rhythm, Murmurs GI/Abdominal Exam: Normal Bowel Sounds, Soft, Non-Tender Extremities: No Pedal Edema Skin: Warm, Dry Psy/Mental Status: Alert, Normal Affect, Normal Mood - Patient Data Result Diagrams: 04/15/21 05:57 04/15/21 05:57 Sepsis Event Note - Evaluation Sepsis Screening Result: No Definite Risk - Problem List & Annotations (1) Palliative care status SNOMED Code(s): 368553539 Code(s): Z51.5 - ENCOUNTER FOR PALLIATIVE CARE Status: Acute Current Visit: Yes (2) YEYO (acute kidney injury) SNOMED Code(s): 30196386, 21882407 Code(s): N17.9 - ACUTE KIDNEY FAILURE, UNSPECIFIED Status: Acute Current Visit: Yes (3) Alzheimer's dementia SNOMED Code(s): 21236814 Code(s): G30.9 - ALZHEIMER'S DISEASE, UNSPECIFIED; F02.80 - DEMENTIA IN OTH DISEASES CLASSD ELSWHR W/O BEHAVRL DISTURB Status: Acute Current Visit: Yes Qualifiers: Alzheimer's disease onset: late-onset (4) MDD (major depressive disorder) SNOMED Code(s): 975772096 Code(s): F32.9 - MAJOR DEPRESSIVE DISORDER, SINGLE EPISODE, UNSPECIFIED Status: Acute Current Visit: Yes Qualifiers: Major depression recurrence: recurrent (5) Myocardial infarction SNOMED Code(s): 28530003 Code(s): I21.9 - ACUTE MYOCARDIAL INFARCTION, UNSPECIFIED Status: Acute Current Visit: Yes Qualifiers: Myocardial infarction type: other Qualified Code(s): I21.A9 - Other myocardial infarction type; I21.A - Other type of myocardial infarction (6) Repeated falls SNOMED Code(s): 468483231 Code(s): R29.6 - REPEATED FALLS Status: Acute Current Visit: Yes (7) Respiratory failure with hypoxia SNOMED Code(s): 23760036516272104 Code(s): J96.91 - RESPIRATORY FAILURE, UNSPECIFIED WITH HYPOXIA Status: Acute Current Visit: Yes Qualifiers: Chronicity: acute Qualified Code(s): J96.01 - Acute respiratory failure with hypoxia (8) Spells of decreased attentiveness SNOMED Code(s): 79886202 Code(s): R68.89 - OTHER GENERAL SYMPTOMS AND SIGNS Status: Acute Current Visit: Yes - Problem List Review Problem List Initiated/Reviewed/Updated: Yes - My Orders Last 24 Hours: My Active Orders 04/20/21 08:38 Consult to Occupational Therapy [OT Evaluation and Treatment] [CONS] Routine Consult to Physical Therapy [PT Evaluation and Treatment] [CONS] Routine - Plan Plan:: 1. Transfer to swing bed today.
--- NOTE | 2021-04-21 09:02 | PCM.DCSUM1 ---
Discharge Summary - Hospital Course Free Text/Narrative:: She was admitted. And found to have OK and hypoxia. She had lots of falls and dementia. After examining her and talk with the family decided to withdraw care and make her comfort care measures. All medicine was with withdrawn except for MS. And the patient had a turnaround and got better so to be more alert and able to get up and walk without any concerns. Her oxygen was able to come off. So therefore looking for skilled care for her. [facility] will take her but not immediately so we will swing her to swing bed. Brief History: Irena was brought from [facility], after she fell and became unresponsive. The was in another room when he heard her fall. She was unresponsive to him and route to the hospital by EMS, and even at the ER was not responding to painful stimuli. Oxygenation was reportedly in the low 80s on room air. She did perk up after a while and was able to respond, and the family give history of a fall recently (about 10 days ago) of a similar nature. She's not able to give much history because of Alzheimer's Dementia.The family endorse that she has had decreased oral intake,has not been participating in activities at the home,sleeping all the time. Diagnosis: Stroke: No - Discharge Data Discharge Date: 04/21/21 Discharge Disposition: DC/Tfer W/I Hosp To Swing 61 Condition: Good - Referral to Home Health Primary Care Physician: Mary Lou Hercules PA-C - Discharge Diagnosis/Problem(s) (1) Palliative care status SNOMED Code(s): 162292710 ICD Code: Z51.5 - ENCOUNTER FOR PALLIATIVE CARE Status: Acute Current Visit: Yes (2) YEYO (acute kidney injury) SNOMED Code(s): 42278618, 77997269 ICD Code: N17.9 - ACUTE KIDNEY FAILURE, UNSPECIFIED Status: Acute Current Visit: Yes (3) Alzheimer's dementia SNOMED Code(s): 69694974 ICD Code: G30.9 - ALZHEIMER'S DISEASE, UNSPECIFIED; F02.80 - DEMENTIA IN OTH DISEASES CLASSD ELSWHR W/O BEHAVRL DISTURB Status: Acute Current Visit: Yes Qualifiers: Alzheimer's disease onset: late-onset (4) MDD (major depressive disorder) SNOMED Code(s): 571225344 ICD Code: F32.9 - MAJOR DEPRESSIVE DISORDER, SINGLE EPISODE, UNSPECIFIED Status: Acute Current Visit: Yes Qualifiers: Major depression recurrence: recurrent (5) Myocardial infarction SNOMED Code(s): 61942010 ICD Code: I21.9 - ACUTE MYOCARDIAL INFARCTION, UNSPECIFIED Status: Acute Current Visit: Yes Qualifiers: Myocardial infarction type: other Qualified Code(s): I21.A9 - Other myocardial infarction type; I21.A - Other type of myocardial infarction (6) Repeated falls SNOMED Code(s): 042694883 ICD Code: R29.6 - REPEATED FALLS Status: Acute Current Visit: Yes (7) Respiratory failure with hypoxia SNOMED Code(s): 76017275121931650 ICD Code: J96.91 - RESPIRATORY FAILURE, UNSPECIFIED WITH HYPOXIA Status: Acute Current Visit: Yes Qualifiers: Chronicity: acute Qualified Code(s): J96.01 - Acute respiratory failure with hypoxia (8) Spells of decreased attentiveness SNOMED Code(s): 13640897 ICD Code: R68.89 - OTHER GENERAL SYMPTOMS AND SIGNS Status: Acute Current Visit: Yes - Patient Summary/Data Consults: Consultations 04/20/21 08:38 Consult to Occupational Therapy [OT Evaluation and Treatment] [CONS] Routine Please Evaluate and Treat. OT Reason for Consult: Strengthening This query below is only for informational purposes and is not editable. Admission Diagnosis/Problem: OK, Myocardial infarction Consult to Physical Therapy [PT Evaluation and Treatment] [CONS] Routine Please Evaluate and Treat. PT Reason for Consult: Strengthening This query below is only for informational purposes and is not editable. Admission Diagnosis/Problem: OK, Myocardial infarction - Patient Instructions Diet: Regular Diet as Tolerated Activity: As Tolerated Driving: Do Not Drive Showering/Bathing: May Shower Other/Special Instructions: Transfer to swing bed. - Discharge Plan Home Medications: Home Meds Donepezil HCl 10 mg PO 12 04/12/21 [History] Acetaminophen [Tylenol Extra Strength] 500 mg PO 04/13/21 [History] Calcium/Vit D/Zinc (800mg/600iu/25mg) 1 tab PO 12 04/13/21 [History] Psyllium Husk (With Sugar) [Metamucil Powder] 2 tsp PO DAILY PRN 04/13/21 [History] Patient Handouts: Fall Prevention in Hospitals, Adult, Venous Thromboembolism Prevention Forms: ED Department Discharge Referrals: Mary Lou Hercules PA-C [Primary Care Provider] - - Discharge Summary/Plan Comment DC Time >30 min.: Yes Total # of Minutes for Discharge Time: 10 minutes - Patient Data Vitals - Most Recent: Last Vital Signs Temp 98.4 F 04/20/21 08:00 Pulse 66 04/20/21 08:00 Resp 18 04/20/21 08:00 BP 171/61 H 04/20/21 08:00 Pulse Ox 97 04/20/21 08:00 Weight - Most Recent: 141 lb 14.4 oz Med Orders - Current: Current Medications Citalopram Hydrobromide (Citalopram 10 Mg Tab) 10 mg PO DAILY [facility] Last Admin: 04/20/21 09:11 Dose: 10 mg Documented by: Donepezil HCl (Donepezil 10 Mg Tab) 10 mg PO DAILY@1200 [facility] Last Admin: 04/20/21 14:00 Dose: 10 mg Documented by: Morphine Sulfate (Morphine 2 Mg/Ml Syringe) 2 mg IVPUSH Q2H PRN PRN Reason: Pain (severe 7-10) Sodium Chloride (Sodium Chloride 0.9% 10 Ml Syringe) 10 ml FLUSH ASDIRECTED PRN PRN Reason: Keep Vein Open Discontinued Medications Aspirin (Aspirin 325 Mg Tab.Ec) 325 mg PO DAILY [facility] Last Admin: 04/14/21 20:06 Dose: Not Given Documented by: Calcium Carbonate/Glycine (Calcium Carbonate 500 Mg Tablet) 500 mg PO DAILY [facility] Last Admin: 04/14/21 20:07 Dose: Not Given Documented by: Cholecalciferol (Cholecalciferol (Vitamin D3) 25 Mcg Tab) 125 mcg PO DAILY [facility] Last Admin: 04/14/21 20:06 Dose: Not Given Documented by: Enoxaparin Sodium (Enoxaparin 60 Mg/0.6 Ml Syringe) 60 mg SUBCUT Q24H [facility] Stop: 04/15/21 10:01 Last Admin: 04/13/21 11:23 Dose: 60 mg Documented by: Sodium Chloride (Normal Saline) 1,000 mls @ 999 mls/hr IV .BOLUS ONE Stop: 04/12/21 09:41 Last Admin: 04/12/21 08:45 Dose: 999 mls/hr Documented by: Sodium Chloride (Normal Saline) 1,000 mls @ 999 mls/hr IV .BOLUS ONE Stop: 04/12/21 11:00 Last Admin: 04/12/21 10:00 Dose: 999 mls/hr Documented by: Sodium Chloride (Normal Saline) 1,000 mls @ 150 mls/hr IV ASDIRECTED [facility] Last Admin: 04/14/21 04:33 Dose: 150 mls/hr Documented by: Metoprolol Succinate (Metoprolol Succinate 25 Mg Tab.Er) 25 mg PO DAILY [facility] Last Admin: 04/14/21 20:07 Dose: Not Given Documented by:
== END 2021-04-21 08:59 | disposition swing bed (61) | DRG 951 ==
LOC: FB.ED 08:18 → FB.MS 10:29
PROVIDERS: ADMIT Family Medicine; ATTEND Family Medicine
DX: G93.40 Encephalopathy, unspecified (principal); Z51.5 Encounter for palliative care; I21.A9 Other myocardial infarction type; J96.01 Acute respiratory failure with hypoxia; Z91.81 History of falling; N17.9 Acute kidney failure, unspecified; F33.9 Major depressive disorder, recurrent, unspecified; Z66 Do not resuscitate; F32.A Depression, unspecified; G30.9 Alzheimer's disease, unspecified; F02.80 Dementia in other diseases classified elsewhere, unspecified severity, without behavioral disturbance, psychotic disturbance, mood disturbance, and anxiety; R29.6 Repeated falls; R68.89 Other general symptoms and signs; Z20.822 Contact with and (suspected) exposure to COVID-19; Z79.899 Other long term (current) drug therapy; W19.XXXA Unspecified fall, initial encounter; Z91.018 Allergy to other foods; F41.9 Anxiety disorder, unspecified; Z90.710 Acquired absence of both cervix and uterus
CPT/HCPCS: 36415; 70450; 71045; 80048; 80053; 81001; 83605; 83735; 84484; 85025; 87086; 87088; 87186; 93005; 97161-GP; 97164-GP; 97165-GO; 99285-25; A9270-GY; J1650; J7030; U0002

== ENCOUNTER 2021-04-21 07:51 | Inpatient (IN) | payer MEDICARE, OTHER ==
[2021-04-21] MEDS ORDERED: Psyllium Husk Powder Sugar Free 5.85 GM Packet PO PRN (10:04)
[2021-04-21] MEDS: Citalopram 10 MG Tab PO SCH (10:15)
[2021-04-21] MEDS: Donepezil 10 MG Tab PO SCH (12:11)
[2021-04-21] MEDS: Calcium Carbonate 500 MG Tablet PO SCH (12:11)
[2021-04-21] MEDS: Acetaminophen 500 MG Tab PO SCH (12:11)
--- NOTE | 2021-04-21 14:14 | PCM.HP.2 ---
H&P History of Present Illness - General Date of Service: 04/21/21 Admit Problem/Dx: Admission Diagnosis/Problem Admission Diagnosis/Problem Weakness Source of Information: Patient, Old Records History Limitations: Reports: Other (Dementia) - History of Present Illness Initial Comments - Free Text/Narative: Is an 85-year-old female patient from [place] that lives in [facility]. She had an VT and hypoxia was brought into the hospital. When she was here they made her comfort cares. After she did look like he was doing well she started get better and she really rallied. And she became very alert was able to walk and talk. She was very forgetful but cooperative and nice. She denies any fevers, chills, chest pain, shortness of breath today. She will be switched to swing bed. They hopefully will get a bed at [facility] in the future. - Related Data Allergies/Adverse Reactions: Allergies Allergy/AdvReac Type Severity Reaction Status Date / Time Raisins Allergy Diarrhea Uncoded 04/12/21 15:45 Tomatoes Allergy Diarrhea Uncoded 04/12/21 15:44 Home Medications: Home Meds Donepezil HCl 10 mg PO 12 04/12/21 [History] Acetaminophen [Tylenol Extra Strength] 500 mg PO 12 04/13/21 [History] Calcium/Vit D/Zinc (800mg/600iu/25mg) 1 tab PO 12 04/13/21 [History] Psyllium Husk (With Sugar) [Metamucil Powder] 2 tsp PO DAILY PRN 04/13/21 [History] Past Medical History Psychiatric History: Reports: Alzheimers Disease, Anxiety, Depression - Past Surgical History Female Surgical History: Reports: Hysterectomy Social & Family History - Family History Family Medical History: Unobtainable - Caffeine Use Caffeine Use: Reports: None - Living Situation & Occupation Living situation: Reports: Assisted Living (Lives at [facility]) Occupation: Retired H&P Review of Systems - Review of Systems: Review Of Systems: See Below General: Reports: No Symptoms HEENT: Reports: No Symptoms Pulmonary: Reports: No Symptoms Cardiovascular: Reports: No Symptoms Gastrointestinal: Reports: No Symptoms Genitourinary: Reports: No Symptoms Musculoskeletal: Reports: No Symptoms Skin: Reports: No Symptoms Psychiatric: Reports: No Symptoms Neurological: Reports: No Symptoms Hematologic/Lymphatic: Reports: No Symptoms Immunologic: Reports: No Symptoms Exam - Exam Exam: See Below - Vital Signs Vital Signs: Last Vital Signs Temp 98.2 F 04/21/21 09:49 Pulse 68 04/21/21 09:49 Resp 16 04/21/21 09:49 BP 169/60 H 04/21/21 09:49 Pulse Ox 93 L 04/21/21 09:49 - Exam General: Alert, Cooperative. No: Oriented HEENT: Normal Nasal Septum, Posterior Pharynx Clear Neck: Supple, Trachea Midline Lungs: Clear to Auscultation, Normal Respiratory Effort Cardiovascular: Regular Rate, Regular Rhythm, Systolic Murmur GI/Abdominal Exam: Normal Bowel Sounds, Soft, Non-Tender, No Distention Back Exam: Normal Inspection Extremities: Normal Inspection, No Pedal Edema Skin: Warm, Dry, Intact Neurological: Normal Speech, Normal Tone Neuro Extensive - Mental Status: Alert, Normal Mood/Affect. No: Oriented x3 Psychiatric: Alert, Normal Affect, Normal Mood Sepsis Event Note - Focused Exam Vital Signs: Vital Signs Temp Pulse Resp BP Pulse Ox Pulse Ox 04/21/21 09:49 98.2 F 68 16 169/60 H 93 L 93 L - Problem List (1) YEYO (acute kidney injury) SNOMED Code(s): 90697081, 98216134 ICD Code: N17.9 - ACUTE KIDNEY FAILURE, UNSPECIFIED Status: Acute Current Visit: No (2) Alzheimer's dementia SNOMED Code(s): 75373148 ICD Code: G30.9 - ALZHEIMER'S DISEASE, UNSPECIFIED; F02.80 - DEMENTIA IN OTH DISEASES CLASSD ELSWHR W/O BEHAVRL DISTURB Status: Acute Current Visit: No Qualifiers: Alzheimer's disease onset: late-onset (3) Encephalopathy acute SNOMED Code(s): 57986018, 658590493 ICD Code: G93.40 - ENCEPHALOPATHY, UNSPECIFIED Status: Acute Current Vi sit: No (4) MDD (major depressive disorder) SNOMED Code(s): 433722600 ICD Code: F32.9 - MAJOR DEPRESSIVE DISORDER, SINGLE EPISODE, UNSPECIFIED Status: Acute Current Visit: No Qualifiers: Major depression recurrence: recurrent (5) Myocardial infarction SNOMED Code(s): 66158347 ICD Code: I21.9 - ACUTE MYOCARDIAL INFARCTION, UNSPECIFIED Status: Acute Current Visit: No Qualifiers: Myocardial infarction type: other Qualified Code(s): I21.A9 - Other dulce cardial infarction type; I21.A - Other type of myocardial infarction (6) Repeated falls SNOMED Code(s): 979436366 ICD Code: R29.6 - REPEATED FALLS Status: Acute Current Visit: No Problem List Initiated/Reviewed/Updated: Yes Orders Last 24hrs: Active Orders 24 hr Category Date Time Status Patient Status [ADT] Routine ADT 04/21/21 09:49 Active Oxygen Therapy [RC] PRN Care 04/21/21 09:49 Active Up With Assistance [RC] ASDIRECTED Care 04/21/21 09:49 Active VTE/DVT Education [RC] Per Unit Routine Care 04/21/21 09:49 Active Vital Signs [RC] DAILY Care 04/21/21 09:49 Active OT Evaluation and Treatment [CONS] Routine Cons 04/21/21 09:49 Active PT Evaluation and Treatment [CONS] Routine Cons 04/21/21 09:49 Active Pureed Diet [DIET] Diet 04/21/21 Lunch Active Acetaminophen [Tylenol Extra Strength] Med 04/21/21 12:00 Active 500 mg PO 1200 Calcium Carbonate [Oyster Shell Calcium] Med 04/21/21 12:00 Active 500 mg PO 1200 Citalopram [Celexa] Med 04/21/21 10:15 Active 10 mg PO DAILY Donepezil [Aricept] Med 04/21/21 12:00 Active 10 mg PO 1200 Psyllium Husk/Aspartame [Metamucil Sugar Free] Med 04/21/21 10:04 Active 1 pkt PO DAILY PRN Resuscitation Status Routine Resus Stat 04/21/21 09:49 Ordered Medication Orders Acetaminophen (Acetaminophen 500 Mg Tab) 500 mg PO 1200 [facility] Last Admin: 04/21/21 12:11 Dose: 500 mg Documented by: LOKESH Calcium Carbonate/Glycine (Calcium Carbonate 500 Mg Tablet) 500 mg PO 1200 [facility] Last Admin: 04/21/21 12:11 Dose: 500 mg Documented by: LOKESH Citalopram Hydrobromide (Citalopram 10 Mg Tab) 10 mg PO DAILY [facility] Last Admin: 04/21/21 10:15 Dose: 10 mg Documented by: LOKESH Donepezil HCl (Donepezil 10 Mg Tab) 10 mg PO 1200 [facility] Last Admin: 04/21/21 12:11 Dose: 10 mg Documented by: LOKESH Psyllium Husk (Psyllium Husk Powder Sugar Free 5.85 Gm Packet) 1 pkt PO DAILY PRN PRN Reason: Constipation Assessment/Plan Comment:: 1. Admit to swing bed. 2 PT/OT. 3. Her medicines were stopped in the hospital but I restarted them they were not very many. 4. Regular diet. 5. Up with assist. - Mortality Measure Prognosis:: Good
[2021-04-22] MEDS: Citalopram 10 MG Tab PO SCH (08:20)
[2021-04-22] MEDS: Acetaminophen 500 MG Tab PO SCH (11:28)
[2021-04-22] MEDS: Donepezil 10 MG Tab PO SCH (11:28)
[2021-04-22] MEDS: Calcium Carbonate 500 MG Tablet PO SCH (11:28)
[2021-04-23] MEDS: Citalopram 10 MG Tab PO SCH (08:45)
[2021-04-23] MEDS: Acetaminophen 500 MG Tab PO SCH (11:45)
[2021-04-23] MEDS: Calcium Carbonate 500 MG Tablet PO SCH (11:45)
[2021-04-23] MEDS: Donepezil 10 MG Tab PO SCH (11:45)
[2021-04-24] MEDS: Citalopram 10 MG Tab PO SCH (09:19)
[2021-04-24] MEDS: Calcium Carbonate 500 MG Tablet PO SCH (11:12)
[2021-04-24] MEDS: Acetaminophen 500 MG Tab PO SCH (11:12)
[2021-04-25] MEDS: Citalopram 10 MG Tab PO SCH (08:43)
[2021-04-25] MEDS: Acetaminophen 500 MG Tab PO SCH (12:26)
[2021-04-25] MEDS: Calcium Carbonate 500 MG Tablet PO SCH (12:26)
[2021-04-26] MEDS: Citalopram 10 MG Tab PO SCH (08:26)
[2021-04-26] MEDS: Acetaminophen 500 MG Tab PO SCH (12:21)
[2021-04-26] MEDS: Calcium Carbonate 500 MG Tablet PO SCH (12:22)
[2021-04-26] MEDS ORDERED: Acetaminophen 500 MG Tab PO PRN (13:30)
[2021-04-26] MEDS ORDERED: Nitrofurantoin Monohydrate/Macrocrystalline 100 MG Cap PO SCH (21:00)
[2021-04-27] MEDS: Citalopram 10 MG Tab PO SCH (08:55)
[2021-04-27] MEDS: Cephalexin 250 MG Cap PO SCH ×2 (08:56→21:00)
[2021-04-27] MEDS: Calcium Carbonate 500 MG Tablet PO SCH (12:26)
[2021-04-27] MEDS: Acetaminophen 500 MG Tab PO SCH (12:26)
[2021-04-28] MEDS: Cephalexin 250 MG Cap PO SCH (08:17)
[2021-04-28] MEDS: Citalopram 10 MG Tab PO SCH (08:17)
--- NOTE | 2021-04-28 10:28 | PCM.DCSUM1 ---
Discharge Summary - Hospital Course HPI Initial Comments: Is an 85-year-old female patient from [place] that lives in [facility]. She had an GA and hypoxia was brought into the hospital. When she was here they made her comfort cares. After looked like she started get better and she really rallied. And she became very alert was able to walk and talk. She was very forgetful but cooperative and nice. She denies any fevers, chills, chest pain, shortness of breath today. She will be switched to swing bed. They hopefully will get a bed at [facility] in the future. Diagnosis: Stroke: No - Discharge Data Discharge Date: 04/28/21 ([facility]) Discharge Disposition: Home, W Home Health Agency 06 Condition: Good - Referral to Home Health Date of Face to Face Encounter: 04/28/21 Reason for Homebound Status: limited mobility/dementia Primary Care Physician: Mary Lou Hercules PA-C Skilled Need: [facility] for assessment, medications managment/education, PT/OT - Discharge Diagnosis/Problem(s) (1) UTI (urinary tract infection) SNOMED Code(s): 84080649 ICD Code: N39.0 - URINARY TRACT INFECTION, SITE NOT SPECIFIED Status: Acute Current Visit: Yes Problem Details: improving (2) Alzheimer's dementia SNOMED Code(s): 23114202 ICD Code: G30.9 - ALZHEIMER'S DISEASE, UNSPECIFIED; F02.80 - DEMENTIA IN OTH DISEASES CLASSD ELSWHR W/O BEHAVRL DISTURB Status: Acute Current Visit: No Qualifiers: Alzheimer's disease onset: late-onset (3) MDD (major depressive disorder) SNOMED Code(s): 856623366 ICD Code: F32.9 - MAJOR DEPRESSIVE DISORDER, SINGLE EPISODE, UNSPECIFIED Status: Acute Current Visit: No Qualifiers: Major depression recurrence: recurrent (4) Myocardial infarction SNOMED Code(s): 27611452 ICD Code: I21.9 - ACUTE MYOCARDIAL INFARCTION, UNSPECIFIED Status: Acute Current Visit: No Qualifiers: Myocardial infarction type: other Qualified Code(s): I21.A9 - Other myocardial infarction type; I21.A - Other type of myocardial infarction (5) Palliative care status SNOMED Code(s): 764922747 ICD Code: Z51.5 - ENCOUNTER FOR PALLIATIVE CARE Status: Acute Current Visit: No (6) Repeated falls SNOMED Code(s): 408985151 ICD Code: R29.6 - REPEATED FALLS Status: Chronic Current Visit: No - Patient Summary/Data Consults: Consultations 04/21/21 09:49 OT Evaluation and Treatment [CONS] Routine Please Evaluate and Treat. OT Reason for Consult: ADL's This query below is only for informational purposes and is not editable. PT Evaluation and Treatment [CONS] Routine Please Evaluate and Treat. PT Reason for Consult: Ambulation This query below is only for informational purposes and is not editable. Hospital Course: Admitted to swing bed for therapy, has had good and bad day with therapy, was sleeping more over the weekend. Had increased urinary frequency, spoke with daughter and she was in agreement to get UA, was abnormal and reflexed to culture. Urine culture growing Gram negative rods, 1 dose of Nitrofurantoin given, changed to Keflex 250 mg q12h due to kidney function, received 3 doses of Keflex, will go home with 7 more doses to complete 5 day course. Family also requested Aricept being discontinued but keeping the Celexa. Covid test negative today to go back to [facility] with family. - Patient Instructions Diet: Usual Diet as Tolerated Activity: As Tolerated Driving: Do Not Drive Showering/Bathing: May Shower Other/Special Instructions: Follow up with Mary Lou Hercules PA-C for recheck of urine. - Discharge Plan *PRESCRIPTION DRUG MONITORING PROGRAM REVIEWED*: Not Applicable *COPY OF PRESCRIPTION DRUG MONITORING REPORT IN PATIENT LADONNA: Not Applicable Prescriptions/Med Rec: Citalopram [Citalopram HBr] 10 mg PO DAILY #30 tablet cephALEXin [Keflex] 250 mg PO Q12H #7 cap Home Medications: Home Meds Acetaminophen [Tylenol Extra Strength] 500 mg PO DAILY@04/13/21 [History] Calcium/Vit D/Zinc (800mg/600iu/25mg) 1 tab PO DAILY@04/13/21 [History] Psyllium Husk (With Sugar) [Metamucil Powder] 2 tsp PO DAILY PRN 04/13/21 [History] Citalopram [Citalopram HBr] 10 mg PO DAILY #30 tablet 04/28/21 [Rx] cephALEXin [Keflex] 250 mg PO Q12H #7 cap 04/28/21 [Rx] Patient Handouts: Cephalexin Tablets or Capsules, You've Been Prescribed an Antibiotic in the Hospital for an Infection - CDC Referrals: Mary Lou Hercules PA-C [Primary Care Provider] - - Discharge Summary/Plan Comment DC Time >30 min.: No Total # of Minutes for Discharge Time: 10 min - General Info Date of Service: 04/28/21 Subjective Update: Irena is pleasantly confused, sitting in her chair eating breakfast. She had urinary frequency on Tuesday, found to have UTI, on Keflex. No complaints of fever, chills, chest pain, abdominal pain. Walked the [place] with nursing yesterday afternoon. - Patient Data Vitals - Most Recent: Last Vital Signs Temp 98 F 04/28/21 08:00 Pulse 65 04/28/21 08:00 Resp 16 04/28/21 08:00 BP 108/41 L 04/28/21 08:00 Pulse Ox 98 04/28/21 08:00 Weight - Most Recent: 144 lb 7 oz I&O - Last 24 hours: Intake & Output 04/27/21 04/28/21 04/28/21 22:59 06:59 14:59 Intake Total 200 Balance 200 Lab Results - Last 24 hrs: Laboratory Results - last 24 hr 04/28/21 Range/Units 03:55 SARS-CoV-2 RNA (VICTORINO) Negative (NEGATIVE) AKASH Results - Last 24 hrs: Microbiology 04/26/21 16:45 Urine Culture - Preliminary Urine, Voided Gram Negative Rods Med Orders - Current: Current Medications Acetaminophen (Acetaminophen 500 Mg Tab) 500 mg PO 1200 [facility] Last Admin: 04/27/21 12:26 Dose: 500 mg Documented by: Acetaminophen (Acetaminophen 500 Mg Tab) 500 mg PO Q6H PRN PRN Reason: pain Calcium Carbonate/Glycine (Calcium Carbonate 500 Mg Tablet) 500 mg PO 1200 [facility] Last Admin: 04/27/21 12:26 Dose: 500 mg Documented by: Cephalexin (Cephalexin 250 Mg Cap) 250 mg PO Q12H [facility] Stop: 05/02/21 08:01 Last Admin: 04/28/21 08:17 Dose: 250 mg Documented by: Citalopram Hydrobromide (Citalopram 10 Mg Tab) 10 mg PO DAILY [facility] Last Admin: 04/28/21 08:17 Dose: 10 mg Documented by: Psyllium Husk (Psyllium Husk Powder Sugar Free 5.85 Gm Packet) 1 pkt PO DAILY PRN PRN Reason: Constipation Discontinued Medications Donepezil HCl (Donepezil 10 Mg Tab) 10 mg PO 1200 [facility] Last Admin: 04/23/21 11:45 Dose: 10 mg Documented by: Nitrofurantoin Macrocrystals (Nitrofurantoin Monohydrate/Macrocrystalline 100 Mg Cap) 100 mg PO BID [facility] Last Admin: 04/27/21 03:15 Dose: 100 mg Documented by: - Exam General: Reports: Alert, Oriented (person, pleasantly confused), Cooperative, No Acute Distress Lungs: Reports: Clear to Auscultation, Normal Respiratory Effort Cardiovascular: Reports: Regular Rate, Regular Rhythm GI/Abdominal Exam: Normal Bowel Sounds, Soft, Non-Tender, No Distention Extremities: No Pedal Edema *Q Meaningful Use (DIS) - VTE *Q VTE Mechanical Contraindications *Q: At Risk for Falls
[2021-04-28] MEDS: Acetaminophen 500 MG Tab PO SCH (12:24)
[2021-04-28] MEDS: Calcium Carbonate 500 MG Tablet PO SCH (12:24)
== END 2021-04-28 14:20 | disposition home health service (06) | DRG 948 ==
LOC: FB.MS 09:05
PROVIDERS: ADMIT Family Medicine; ATTEND Family Medicine
DX: R53.1 Weakness (principal); N39.0 Urinary tract infection, site not specified; F33.9 Major depressive disorder, recurrent, unspecified; G93.40 Encephalopathy, unspecified; G30.1 Alzheimer's disease with late onset; F02.80 Dementia in other diseases classified elsewhere, unspecified severity, without behavioral disturbance, psychotic disturbance, mood disturbance, and anxiety; R29.6 Repeated falls; Z20.822 Contact with and (suspected) exposure to COVID-19; Z91.018 Allergy to other foods; Z51.5 Encounter for palliative care; Z88.8 Allergy status to other drugs, medicaments and biological substances; Z90.710 Acquired absence of both cervix and uterus; I25.2 Old myocardial infarction
CPT/HCPCS: 81001; 87086; 87088; 87186; 97116-GP; 97165-GO; 97530-GO; 97530-GP; 97535-GO; A9270-GY; U0002